=== PATIENT | male | born 1955 | race Caucasian/White ===

== ENCOUNTER 2019-01-21 00:51 | Outpatient (CLI) | payer BC, SELFPAY ==
--- NOTE | 2019-01-21 08:15 | DI.NM_ITS ---
SEE RESULTS ON DAY 2 OF THE STUDY.
== END 2019-01-21 01:11 ==
PROVIDERS: PCP Emergency Medicine; Visit Provider Internal Medicine Interventional Cardiology
DX: I42.9 Cardiomyopathy, unspecified (principal); I25.2 Old myocardial infarction; R94.30 Abnormal result of cardiovascular function study, unspecified; R06.02 Shortness of breath; E11.9 Type 2 diabetes mellitus without complications; I10 Essential (primary) hypertension; E78.5 Hyperlipidemia, unspecified; I48.91 Unspecified atrial fibrillation; Z82.49 Family history of ischemic heart disease and other diseases of the circulatory system

== ENCOUNTER 2019-01-22 00:15 | Outpatient (CLI) | payer BC, SELFPAY ==
--- NOTE | 2019-01-22 06:45 | MERGEMPI_ITS ---
*[facility]* *[facility]* [address] [place] [address] Myocardial Perfusion Imaging - SPECT Reyes protocol Date of study: 01/22/2019 *PATIENT PRESENTATION* Height: 172.7cm (68in) Blood Pressure: Weight: 163.6kg (360lb) BSA: 2.9m^2 Referring physician: Ed Rowe Ordering physician: Bill Gurrola MD Impressions: - Abnormal contraction consistent with cardiomyopathy. - Study suggests small myocardial infarction in the territory of the left anterior descending coronary artery. Summary: 1. Myocardial perfusion imaging: There is a small sized, severely intense, fixed defect involving the apical anterior and apical wall(s). This suggests small myocardial infarction in the distribution of the left anterior descending coronary artery. 2. The left ventricular end-systolic volume is 102ml. The calculated left ventricular ejection fraction after stress: 34%. LV global systolic function is severely reduced. Diffuse left ventricular regional motion abnormalities. 3. Stress ECG conclusions: The stress ECG is indeterminate due to baseline ST/T wave abnormality. 4. Stress: The target heart rate was achieved. The heart rate response to stress is exaggerated. There is resting hypertension with an appropriate response to stress. The patient experienced no chest pain during stress. Exercise capacity is markedly diminished for age. 5. Baseline ECG: Atrial fibrillation. Nonspecific ST changes. 6. Treadmill exercise testing was performed using the Reyes protocol. The patient exercised for 3 min, to protocol stage 1, to a maximal work rate of 4.6mets. Exercise was terminated due to achievement of target heart rate. Recommendations: 1. Transthoracic echocardiography should be performed in order to evaluate LV function. 2. Clinical correlation is recommended. Indication: R06.02, Appropriate Use Criteria: M (May be appropriate). History: REASON FOR VISIT: PREOP REQUIREMENT FOR BARIATRIC SURGERY. PAST MEDICAL HISTORY: DIABETES MELLITUS II, OBSTRUCTIVE SLEEP APNEA (WITH BIPAP USE), HYPERCHOLESTEROLEMIA, ESSENTIAL HTN, CARDIOMYOPATHY, ATRIAL FIBRILLATION, DEPRESSIVE DISORDER. FAMILY HISTORY: FATHER (HEART DISEASE, HTN). SISTER (HTN) SMOKING STATUS: QUIT 40 YEARS AGO. EXERCISE ROUTINE: NONE. Risk factors: Family history of coronary artery disease. Hypertension. Diabetes mellitus. Obesity. Dyslipidemia. Cholesterol: 126mg/dl. HDL: 37mg/dl. LDL: 69mg/dl. Triglycerides: 145mg/dl. ALLERGIES: NO KNOWN ALLERGIES. MEDICATIONS: SIMVASTATIN 40MG, DAILY. TERAZOSIN 1MG, HS. FUROSEMIDE 40MG, DAILY. LISINOPRIL 60MG, DAILY. SERTRALINE 100MG, DAILY. METOPROLOL SUCCINATE ER 100MG, DAILY. SILDENAFIL 100MG, PRN. GLIPIZIDE ER 10MG, DAILY. SPIRONOLACTONE 25MG, DAILY. METFORMIN 1,000MG, DAILY. Imaging Technique: Protocol: Reyes protocol. Acquisition: Gated SPECT; stress. The patient was imaged in the supine position. Attenuation correction used. Isotope administration: - Stress. Tc[99m]-sestamibi. Dose: 28mCi. Injection time: 08:30 AM. - Dose: 30.8mCi. Injection time: 10:00 AM. Baseline ECG: ATRIAL FIBRILLATION WITH VENTRICULAR ECTOPIC BEATS. HEART RATE 92 BPM. Atrial fibrillation. Nonspecific ST changes. Stress protocol: + +---+ + !Stage !HR !BP (mmHg) ! + +---+ + !Baseline supine !92 !150/52 (85) ! + +---+ + !Baseline standing !92 !140/60 (87) ! + +---+ + !Stage I; 1.7mph, 10degrees; 3 min!176!180/82 (115)! + +---+ + !Recovery; 1 min !114!190/76 (114)! + +---+ + !Recovery; 3 min !94 !146/72 (97) ! + +---+ + !Recovery; 6 min !93 !132/68 (89) ! + +---+ + * Stress results: Maximal heart rate during stress was 188bpm (122% of maximal predicted heart rate). The maximal predicted heart rate was 154bpm. The target heart rate was achieved. The heart rate response to stress is exaggerated. There is resting hypertension with an appropriate response to stress. The rate-pressure product for the peak heart rate and blood pressure was 44349aa Hg/min. The patient experienced no chest pain during stress. Exercise capacity is markedly diminished for age. Stress ECG: TREADMILL PORTION OF STRESS TEST ENDED IN 3MIN DUE TO PATIENT SUSTAINING HEART RATE GREATER THAN 100% OF TARGET. NORMAL BLOOD PRESSURE RESPONSE TO EXERCISE. EXAGGERATED HEART RATE RESPONSE TO EXERCISE. MAXIMAL HR ACHIEVED 188 BPM, 122% OF TARGET. APPROXIMATE METS ACHEIVED 4.64. NO ANGINA REPORTED. VENTRICULAR ECTOPIC BEATS PRESENT AT BASELINE, OCCASIONAL PAIR, DECREASING IN FREQUENCY DURING EXERCISE. NO SIGNIFICANT ST SEGMENT CHANGES NOTED. MARKEDLY DIMINISHED FUNCTIONAL CAPACITY. The stress ECG is indeterminate due to baseline ST/T wave abnormality. Myocardial perfusion: Imaging information: gated. Image quality reduced due to patient motion and image flickering consistent with an ECG gating problem. The left ventricle is moderately dilated. There is a small sized, severely intense, fixed defect involving the apical anterior and apical wall(s). This suggests small myocardial infarction in the distribution of the left anterior descending coronary artery. Ventricular Function (Wall Motion): The left ventricular end-systolic volume is 102ml. The calculated left ventricular ejection fraction after stress: 34%. LV global systolic function is severely reduced. Diffuse left ventricular regional motion abnormalities. Study data: Ed Rowe MD supervised and was readily available during the procedure. This study was interpreted by [facility]. Study status: Routine. Consent: The risks, benefits, and alternatives to the procedure were explained to the patient and informed consent was obtained. Procedure: Initial setup. A baseline ECG was recorded. Surface ECG leads and manual cuff blood pressure measurements were monitored. Heart sounds: Irregular. Lung sounds: Normal. Treadmill exercise testing was performed using the Reyes protocol. The patient exercised for 3 min, to protocol stage 1, to a maximal work rate of 4.6mets. Exercise was terminated due to achievement of target heart rate. Study completion: All catheters inserted during the procedure were removed. The patient tolerated the procedure well and was discharged from the lab. Discharge: The patient left the laboratory in stable condition. Birthdate: Patient birthdate: 1955. Sex: Gender: male. Study date: Study date: 01/22/2019. Study time: 00:01 AM. Signature Documentation: - The imaging portion of this study was interpreted by Nuclear Charge Entry Clerk Ed Rowe MD. - The imaging portion of this study was interpreted by Nuclear Radiologist Melquiades Sosa MD. - The Stress ECG portion of this study was interpreted by Ed Rowe MD. Electronically signed by Ed Rowe 01/22/2019 15:11
== END 2019-01-22 00:35 ==
PROVIDERS: PCP Emergency Medicine; Visit Provider Internal Medicine Interventional Cardiology
DX: I42.9 Cardiomyopathy, unspecified (principal); I25.2 Old myocardial infarction; R94.30 Abnormal result of cardiovascular function study, unspecified; R06.02 Shortness of breath; E11.9 Type 2 diabetes mellitus without complications; I10 Essential (primary) hypertension; E78.5 Hyperlipidemia, unspecified; I48.91 Unspecified atrial fibrillation; Z82.49 Family history of ischemic heart disease and other diseases of the circulatory system
CPT/HCPCS: 78452; 93017

== ENCOUNTER 2019-01-30 01:29 | Outpatient (CLI) | payer BC, SELFPAY ==
--- NOTE | 2019-01-30 14:00 | MERGE_ITS ---
*[facility]* *[facility]* [address] [place] [address] Date of study: 01/30/2019 Transthoracic Echocardiography M-mode, complete 2D, complete spectral Doppler, and color Doppler *STUDY CONCLUSIONS* Impressions: Moderate-severe cardiomyopathy. Summary: 1. Left ventricle: The cavity size was normal. Wall thickness was increased in a pattern of mild LVH. Systolic function was moderately reduced. The estimated ejection fraction was 35-40%. Severe hypokinesis of the anteroseptal, anterior, and apical myocardium. 2. Ventricular septum: Septal motion showed paradoxical motion. 3. Mitral valve: There was mild regurgitation. 4. Left atrium: The atrium was severely dilated. 5. Right ventricle: The cavity size was mildly dilated. Wall thickness was normal. Systolic function was mildly to moderately reduced. 6. Right atrium: The atrium was severely dilated. 7. Tricuspid valve: There was mild-moderate regurgitation. 8. Pulmonary arteries: Pulmonary systolic pressure was mildly increased. PA peak pressure: 41mm Hg (S). 9. Pericardium, extracardiac: A trivial pericardial effusion was identified posterior to the heart. *PATIENT PRESENTATION* Height: 172.7cm ((68in) ) S/D Pressure: 122 / 75 Weight: 163.3kg ((359.2lb) ) BSA: 2.9m^2 Test start time: 02:00 PM. Test stop time: 03:10 PM. 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 This study was interpreted by [facility]. Pertinent images and digital data are archived for permanent storage and are available for subsequent review. Study status: Routine. Transthoracic echocardiography. M-mode, complete 2D, complete spectral Doppler, and color Doppler. A Transthoracic Echocardiogram was performed. Scanning was performed from the parasternal, apical, subcostal, and suprasternal notch acoustic windows. Images were obtained using an [id number] cardiac ultrasound machine. Image quality was adequate. Study completion: The patient tolerated the procedure well. History: PMH: SOB R06.02. *CARDIAC ANATOMY* Left ventricle: The cavity size was normal. Wall thickness was increased in a pattern of mild LVH. Systolic function was moderately reduced. The estimated ejection fraction was 35-40%. Regional wall motion abnormalities: Severe hypokinesis of the anteroseptal, anterior, and apical myocardium. Diastolic parameters suggest increased LV filling pressures. Aortic valve: Trileaflet; normal thickness leaflets. Mobility was not restricted. Doppler: Transvalvular velocity was within the normal range. There was no stenosis. There was no significant regurgitation. VTI ratio of LVOT to aortic valve: 0.53. Valve area (VTI): 2cm^2. Indexed valve area (VTI): 0.7cm^2/m^2. Peak velocity ratio of LVOT to aortic valve: 0.52. Valve area (Vmax): 2cm^2. Indexed valve area (Vmax): 0.7cm^2/m^2. Mean velocity ratio of LVOT to aortic valve: 0.49. Valve area (Vmean): 1.9cm^2. Indexed valve area (Vmean): 0.7cm^2/m^2. Mean gradient (S): 4.8mm Hg. Peak gradient (S): 7.4mm Hg. Aorta: Aortic root: The aortic root was normal in size. Ascending aorta: The ascending aorta was normal in size. Mitral valve: Mildly thickened leaflets. Mobility was not restricted. Doppler: Transvalvular velocity was within the normal range. There was no evidence for stenosis. There was mild regurgitation. Valve area by pressure half-time: 4cm^2. Indexed valve area by pressure half-time: 1.4cm^2/m^2. Peak gradient (D): 4.7mm Hg. Left atrium: The atrium was severely dilated. Right ventricle: The cavity size was mildly dilated. Wall thickness was normal. Systolic function was mildly to moderately reduced. Ventricular septum: Septal motion showed paradoxical motion. Pulmonic valve: Doppler: Transvalvular velocity was within the normal range. There was no evidence for stenosis. There was mild regurgitation. Peak gradient (S): 4.4mm Hg. Tricuspid valve: Structurally normal valve. Doppler: Transvalvular velocity was within the normal range. There was no evidence for stenosis. There was mild-moderate regurgitation. Pulmonary artery: Pulmonary systolic pressure was mildly increased. Right atrium: The atrium was severely dilated. Pericardium: A trivial pericardial effusion was identified posterior to the heart. Systemic veins: Inferior vena cava: Well visualized. The vessel was patent and normal in size. The respirophasic diameter changes were in the normal range (greater than or equal to 50%), consistent with normal central venous pressure. Baseline ECG: Atrial fibrillation. Measurements Left ventricle Value Reference LV ID, ED, PLAX (H) 6.3 cm 3.5 - 6.0 LV ID, ES, PLAX (H) 5.0 cm 2.1 - 4.0 LV PW thickness, ED, PLAX 1.1 cm LV end-diastolic volume, 1-p A2C 153 ml LV ejection fraction, 1-p A2C 29 % LV end-diastolic volume, 1-p A4C 162 ml LV ejection fraction, 1-p A4C 35 % LV e', lateral 0.071 m/sec LV E/e', lateral 15 LV e', medial 0.073 m/sec LV E/e', medial 15 LV e', average 0.072 m/sec LV E/e', average 15 Ventricular septum Value Reference IVS thickness, ED, PLAX 1.2 cm LVOT Value Reference LVOT ID, A-P 2.2 cm LVOT area 3.9 cm^2 LVOT peak velocity, S 0.71 m/sec LVOT mean velocity, S 0.52 m/sec LVOT VTI, S 16.3 cm LVOT peak gradient, S 2 mm Hg LVOT mean gradient, S 1.2 mm Hg Stroke volume (SV), LVOT DP 64 ml Stroke index (SV/bsa), LVOT DP 22 ml/m^2 Aortic valve Value Reference Aortic valve peak velocity, S 1.4 m/sec Aortic valve mean velocity, S 1.05 m/sec Aortic valve VTI, S 31.0 cm Aortic mean gradient, S 4.8 mm Hg Aortic peak gradient, S 7.4 mm Hg VTI ratio, LVOT/AV 0.53 Aortic valve area, VTI 2 cm^2 Velocity ratio, peak, LVOT/AV 0.52 Aortic valve area, peak velocity 2 cm^2 Velocity ratio, mean, LVOT/AV 0.49 Aortic valve area, mean velocity 1.9 cm^2 Aortic valve area/bsa, mean velocity 0.7 cm^2/m^2 Aorta Value Reference Aortic root ID, ED 3.3 cm Ascending aorta ID, A-P, S 3.1 cm RVOT Value Reference RVOT VTI, S 13.3 cm Left atrium Value Reference LA area, ES, A4C (H) 35.5 cm^2 8.8 - 23.4 LA area, ES, A2C 29 cm^2 LA volume, ES, 1-p A2C 62 ml LA volume/bsa, ES, 1-p A2C 21 ml/m^2 LA volume, ES, 2-p 126 ml LA volume/bsa, ES, 2-p 43 ml/m^2 Mitral valve Value Reference Mitral E-wave peak velocity 1.08 m/sec Mitral deceleration time 192 ms 150 - 230 Mitral pressure half-time 56 ms Mitral peak gradient, D 4.7 mm Hg Mitral valve area, PHT, DP 4 cm^2 Pulmonary veins Value Reference Pulmonary vein peak velocity, S 0.55 m/sec Pulmonary vein peak velocity, D 0.8 m/sec Pulmonary vein velocity ratio, peak, 0.69 S/D Pulmonary arteries Value Reference PA pressure, S, DP (H) 41 mm Hg <=30 Tricuspid valve Value Reference Tricuspid regurg peak velocity 3 m/sec Tricuspid peak RV-RA gradient 35.2 mm Hg Right atrium Value Reference RA area, ES, A4C (H) 32 cm^2 8.3 - 19.5 Systemic veins Value Reference Estimated CVP 10 mm Hg Right ventricle Value Reference RV pressure, S, DP (H) 45 mm Hg <=30 Pulmonic valve Value Reference Pulmonic peak gradient, S 4.4 mm Hg Legend: (L) and (H) nasim values outside specified reference range. I have personally reviewed the images and have reviewed and edited the reported findings. Electronically signed by Herminia Larsen 01/30/2019 17:46
== END 2019-01-30 01:49 ==
PROVIDERS: PCP Emergency Medicine; Visit Provider Internal Medicine Interventional Cardiology
DX: R06.02 Shortness of breath (principal); I42.9 Cardiomyopathy, unspecified; I51.7 Cardiomegaly; I36.1 Nonrheumatic tricuspid (valve) insufficiency; I31.3 Pericardial effusion (noninflammatory)
CPT/HCPCS: 93306

== ENCOUNTER 2019-02-03 08:42 | Outpatient (CLI) | payer BC, SELFPAY | END 2019-02-03 09:02 | PROVIDERS: PCP Emergency Medicine; Visit Provider Internal Medicine Interventional Cardiology | DX: I48.91 Unspecified atrial fibrillation (principal) | CPT/HCPCS: 93005; 93010 ==

== ENCOUNTER 2019-11-19 09:30 | Outpatient (CLI) | payer BC, SELFPAY | END 2019-11-19 09:50 | PROVIDERS: PCP Emergency Medicine; Visit Provider Internal Medicine Cardiovascular Disease | DX: I48.91 Unspecified atrial fibrillation (principal); I42.9 Cardiomyopathy, unspecified | CPT/HCPCS: 93005; 93010 ==

== ENCOUNTER 2020-01-19 00:57 | Outpatient (CLI) | payer BC, SELFPAY ==
[2020-01-19 07:47] LABS: Abs Immature Grans 0.01 k/cumm (0.0-0.09); Absolute Basophil Count 0.01 k/cumm (0.0-0.2); Absolute Lymphocyte Count 2.19 k/cumm (1.2-3.4); Absolute Monocyte Count 0.39 k/cumm (0.11-0.7); Absolute Neutrophil Count 3.74 k/cumm (1.2-6.7); Basophils % 0.2; Eosinophils % 1.6; HCT 40.7 % (40.0-50.0); HGB 13.4 g/dL (13.5-17.5); Immature Grans % 0.2 %; Mean Corp. HGB Concentration 32.9 g/dL (32.0-36.0); Mean Platelet Volume 11.3 fL (8.0-11.0); Monocytes % 6.1; Neutrophils % 57.9; Platelet Count 204 x1000/uL (130-400); RBC 4.79 m/cumm (4.50-6.00); RBC Distribution Width 15.6 % (11.8-14.1); White Blood Cell Count 6.44 k/cumm (4.4-10.8)
[2020-01-19 08:01] LABS: Hemoglobin A1C 6.7 % (3.8-5.6)
[2020-01-19 08:31] LABS: Iron 87 ug/dL (65-175)
[2020-01-19 08:54] LABS: Vitamin D 25 Total 41.1 ng/ml (30-100)
[2020-01-19 09:01] LABS: ALT 27 U/L (16-63); AST 14 U/L (15-37); Albumin 3.9 g/dL (3.4-5.0); Alkaline Phosphatase 84 U/L (46-116); Anion Gap 9.9 mmol/L (3-11); Bilirubin, Total 0.6 mg/dL (0.2-1.0); CO2 24.1 mmol/L (21.0-32.0); CREATININE 1.22 mg/dL (0.70-1.30); Calcium 8.7 mg/dL (8.5-10.1); Calculated LDL 71 mg/dL (<100); Chloride 105 mmol/L (98-107); Cholesterol 134 mg/dL (<200); Estimated GFR 59.25 (mL/min/1.73m2); Ferritin 133 ng/mL (26-388); Folate 10.2 ng/mL (8.6-20.0); Glucose 146 mg/dL (74-106); HDL Cholesterol 41 mg/dL (40-60); Potassium 4.4 mmol/L (3.5-5.1); Sodium 139 mmol/L (136-145); Total Protein 7.1 g/dL (6.4-8.2); Triglyceride 112 mg/dL (<150); Vitamin B12 486 pg/mL (193-986)
[2020-01-19 09:20] LABS: BUN 23 mg/dL (7-18)
[2020-01-21 08:30] LABS: Thiamine (Vitamin B1), WB 176 nmol/L (70-180)
[2020-01-22 10:31] LABS: Prealbumin 25 mg/dL (20-40)
== END 2020-01-19 01:17 ==
PROVIDERS: PCP Emergency Medicine; Visit Provider Nurse Practitioner Family
DX: I10 Essential (primary) hypertension (principal); G47.33 Obstructive sleep apnea (adult) (pediatric); E11.9 Type 2 diabetes mellitus without complications; E78.5 Hyperlipidemia, unspecified; K91.2 Postsurgical malabsorption, not elsewhere classified; E83.10 Disorder of iron metabolism, unspecified; Z98.84 Bariatric surgery status
CPT/HCPCS: 36415; 80053; 80061; 82306; 82607; 82728; 82746; 83036; 83540; 84134; 84425; 85025

== ENCOUNTER 2020-06-29 07:35 | Outpatient (CLI) | payer BC, SELFPAY ==
[2020-07-01 13:53] LABS: Patient Race White; SARS-CoV-2 RNA Undetected (Undetected); SARS-CoV-2 Specimen Source Nasal
== END 2020-06-29 07:55 ==
PROVIDERS: PCP Emergency Medicine; Visit Provider Nurse Practitioner Family
DX: R50.9 Fever, unspecified (principal); R53.83 Other fatigue; R19.7 Diarrhea, unspecified
CPT/HCPCS: U0003

== ENCOUNTER 2020-09-15 02:41 | Outpatient (CLI) | payer BC, SELFPAY ==
[2020-09-15 10:56] LABS: Hemoglobin A1C 5.6 % (<5.7)
== END 2020-09-15 03:01 ==
PROVIDERS: PCP Emergency Medicine; Visit Provider Emergency Medicine
DX: E11.9 Type 2 diabetes mellitus without complications (principal)
CPT/HCPCS: 36415; 83036

== ENCOUNTER 2020-09-15 02:55 | Outpatient (CLI) | payer BC, SELFPAY ==
[2020-09-16 18:46] LABS: COVID-19 RT-PCR UVMMC Result Negative (Negative)
== END 2020-09-15 03:15 ==
PROVIDERS: PCP Emergency Medicine; Visit Provider Emergency Medicine
DX: Z20.828 Contact with and (suspected) exposure to other viral communicable diseases (principal)
CPT/HCPCS: U0003

== ENCOUNTER 2020-09-21 01:45 | Outpatient (CLI) | payer BC, SELFPAY ==
--- NOTE | 2020-09-21 07:24 | DI.US_ITS ---
APPROVED REPORT EXAM: Comprehensive 2D, Doppler, and color-flow Echocardiogram Patient Location: Out-Patient Cost Controller: Jayashree Henriquez RDCS (AE) Indications: cardiomyopathy Other Information Study Quality: Adequate Conclusion Ventricular chamber size and wall thickness. Estimated ejection fraction is 45 to 50% with mild glob al hypokinesis The right ventricle is normal in size and systolic function Left atrium is mildly dilated. The right atrium is normal in size Structurally normal trileaflet aortic valve without regurgitation or stenosis Structurally normal mitral valve with moderate regurgitation Structurally normal tricuspid valve, trace regurgitation, normal estimated right ventricular systolic pressure Structurally normal pulmonic valve Wall motion Left Ventricle The left ventricle is normal size. Left ventricular systolic function is mildly decreased. There is n ormal left ventricular wall thickness. There is mild global hypokinesis of the left ventricle. There is no ventricular septal defect visualized. LVEF is 45-50%. Right Ventricle The right ventricle is normal size. The right ventricular systolic function is normal. The RVSP is 28 .1mmHg. Atria Left atrium is mildly dilated. Left atrium is moderately dilated. Left atrium is severely dilated. No thrombus is visualized in the left atrium or appendage. Thrombus is present in the left atrium. Thro mbus is present in the left atrial appendage. 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 The right atrium size is normal. The interatrial septum is intact with no evidence for an atrial sep garcia defect. Aortic Valve The aortic valve is normal in structure. Aortic valve is trileaflet. There is no aortic valvular sten osis. No aortic regurgitation is present. Mitral Valve The mitral valve is normal in structure. No evidence of mitral valve stenosis. moderate mitral regurg itation. Tricuspid Valve The tricuspid valve is normal in structure. There is no tricuspid valve stenosis. Trace tricuspid reg urgitation. Pulmonic Valve The pulmonary valve is normal in structure. There is no pulmonic valvular stenosis. There is no pulmo inez valvular regurgitation. Great Vessels The aortic root is normal in size. The ascending aorta is normal in size. Aortic arch is not well vis ualized. IVC is normal in size and collapses >50% with inspiration. Pericardium Trivial pericardial effusion. 2D Dimensions IVSD d PLAX 1.15 cm M: 0.6-1.2 LV Vol A2C d MOD 201.6 mL LVPW d PLAX 1.12 cm M: 0.6 - 1.2 LV Vol A4C d MOD 158.5 mL LVID d PLAX 5.88 cm M: 4.2 - 5.8 LA vol/ BSA A2C s A-L 43.4 mL/m2 LVDs 4.45 cm M: 2.5 - 4.0 LA vol/ BSA A4C s A-L 38.5 mL/m2 Ao Root d 2.94 cm M: 3.1 - 3.7 LA Vol/ BSA Biplane s A-L 41.8 mL/m2 RA Area A4C 27.60 cm2 LA Area A4C s MOD 25.64 cm2 RA Vol/ BSA A4C s A-L 41.6 mL/m2 LA Area A2C s MOD 27.81 cm2 Ao Asc Diam d 3.28 cm M: 2.6 - 3.4 LV EF A4C MOD 45.2 % LV EF Teichholz 47.5 % LV EF A2C MOD 44.2 % LVEF (Cardenas's) 45.54 % M: 52 - 72 LV EF Biplane MOD 45.5 % LV Volume 132.33 mL M: 62 - 150 SV 83.41 mL LV Volume Index 59.07 mL/m2 M: 34 - 74 SV Index 37.12 mL/m2 LV Vol Biplane MOD 183.2 mL FS 24.25 % M-Mode TAPSE 1.89 cm (M/F) >1.7 LV Diastology MV E' medial 0.083 (>0.07 m/s) MV E Vmax 1.17 (0.4-1.3 m/s) LV E/e MED 14.00 (<14) MV E' lateral 0.115 (>0.1 m/s) LV E/e LAT 10.15 (<14) MV E/E' medial 14.04 MV E/E' lateral 10.16 Aortic Valve LVOT Area 4.03 cm2 AoV Area Vmax 2.57 cm2 LVOT Vmax 0.87 m/s AoV Area/ BSA (Vmax) 1.14 cm2/m2 LVOT Mean Venu. 0.60 m/s CHU Mean Venu. 2.34 cm2 LVOT Peak Grad 3.1 mmHg CHU Mean Venu. Index 1.04 cm2/m2 LVOT Mean Grad 1.7 mmHg LVOT VTI 0.194 m LVOT Diam s 2.25 cm AoV Vmax 1.37 m/s Velocity Ratio 0.63 AoV Mean Venu. 1.04 m/s AoV Peak Grad 7.5 mmHg LVOT SV 78.19 mL AoV Mean Grad 4.5 mmHg AoV VTI 0.309 m AoV Area VTI 2.53 cm2 AoV Area/ BSA (VTI) 1.12 cm/m2 Mitral Valve MV DT 242 (160-240 msec) MR Vmax 4.41 m/s MV PHT 70 msec MR VTI 1.679 m MV Area PHT 3.14 cm2 MR Peak Grad 77.7 mmHg MV VTI 0.361 m MR Mean Grad 52.7 mmHg MV VTI Annulus 0.366 m MR PISA Radius 0.53 cm MV Area VTI 2.20 (4.0-6.0 cm2) MR EROA 0.14 cm2 MR Aliasing Velocity 0.35 m/s MR PISA 1.76 cm2 Pulmonary Valve PV Vmax 0.95 (0.5-1.5 m/s) RVOT Peak Gr. 1.38 mmHg PV Peak Grad 3.6 mmHg RVOT Mean Gr. 0.75 mmHg PV Mean Grad 2.0 mmHg RVOT VTI 0.146 m PV VTI 0.212 m RVOT Vmax 0.59 m/s Tricuspid Valve TR Peak Grad 25.1 mmHg TR Vmax 2.51 m/s RA Pressure 3.00 mmHg RVSP (TR) 28.1 mmHg
== END 2020-09-21 02:05 ==
PROVIDERS: PCP Emergency Medicine; Visit Provider Internal Medicine Cardiovascular Disease
DX: I42.9 Cardiomyopathy, unspecified (principal); I34.0 Nonrheumatic mitral (valve) insufficiency
CPT/HCPCS: 93306

== ENCOUNTER 2021-02-05 12:26 | Emergency (ER) | payer BC, SELFPAY ==
--- NOTE | 2021-02-05 12:30 | DI.RAD_ITS ---
Exam(s) XR HAND RT COMPLETE EXAM: XR HAND RT COMPLETE CLINICAL HISTORY: crush injury. TECHNIQUE: 2D digital imaging was performed. COMPARISON: No exams were available for comparison FINDINGS: There is comminuted but nondisplaced fracture of the base the proximal phalanx of the 5th finger. Ad jacent 5th metacarpal head appears intact. No radiopaque foreign body. No other fractures identifie d. Benign-appearing cysts exostoses is seen off the volar medial aspect of the middle phalanx of the adjacent 4th-ring finger. Also a 1 millimeter calcific density seen off of the medial aspect of the head of the middle phalanx of the 4th-ring finger. IMPRESSION: Comminuted but nondisplaced fracture of the base of the proximal phalanx of the 5th finger. Fracture line is noted to violate the metacarpophalangeal joint surface. No radiopaque foreign body. No oth er fractures identified. Other findings as above. DATA REPOSITORY: RADIATION DOSE DELIVERED:
[2021-02-05 12:33] VITALS: BP 126/51; PULSE 81; RESP 16; TEMP 36.2; O2SAT 97
--- NOTE | 2021-02-05 13:32 | DI.VRAD_ITS ---
PROCEDURE INFORMATION: Exam: XR Right Hand Exam date and time: 02/05/2021 12:40 PM Age: 66 years old Clinical indication: Pain; Other: Crush injury TECHNIQUE: Imaging protocol: XR Right hand. Views: 3 or more views. COMPARISON: No relevant prior studies available. FINDINGS: Bones/joints: Comminuted nondisplaced fracture of the base and proximal shaft of the right proximal phalanx. 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 Soft tissues: Soft tissue swelling about right 5th finger. IMPRESSION: Comminuted nondisplaced fracture of the base and proximal shaft of the right proximal phalanx. Dictated and Authenticated by: Tracy Zamora MD. Ordering:CATALINA Wilkerson MD
--- NOTE | 2021-02-05 13:36 | W.ED.GENAD ---
Discharge Plan Disposition Patient Disposition: HOME Condition: Stable Discharge Details Clinical Impression: Finger fracture, right Primary Care Provider: Denis Olivier ED Provider: Rock Fitch Home Meds and New Rx's Prescriptions: Continued furosemide 40 mg tablet 20 mg PO DAILY Qty: 90 RF: 4 metformin 1,000 mg tablet 500 mg PO DAILY Qty: 180 RF: 3 simvastatin 40 mg tablet 40 mg PO DAILY Qty: 90 RF: 6 terazosin 1 mg capsule 1 mg PO HS Qty: 90 RF: 4 sertraline 100 mg tablet 100 mg PO DAILY Qty: 90 RF: 3 Eliquis 5 mg tablet 5 mg PO BID Qty: 180 RF: 3 metoprolol succinate 50 mg tablet extended release 24 hr 100 mg PO DAILY Qty: 180 RF: 3 lisinopril 30 mg tablet 60 mg PO DAILY Qty: 180 RF: 4 sildenafil [Viagra] 100 mg tablet 50 - 100 mg PO ONCE PRN (Reason: sexual activity) Qty: 10 RF: 4 Discharge Instructions Instructions: Finger Fracture (ED) Additional Instructions: Rest, elevate, cool compresses every 2 hours for 20 minutes. Wear olinda taping and finger splint until reevaluation with orthopedics. Xxji-nyw-dvahajq medications such as Tylenol as directed for discomfort. I have placed you on the orthopedic list, please contact their office on Sunday to set up prompt outpatient reevaluation. Please watch for new or worsening symptoms and return to the ER for any concerns Referrals: Angel Dubois MD [ [facility] STAFF PHYSICIAN] - Discharge Data Discharge Date/Time-TO BE ENTERED AT DEPARTURE: 02/05/21 14:11 Medical Decision Making 66-year-old gentleman, [id number], presents for right hand injury after a laura slipped and his hand was pinched between a can and a block of wood. No other distracting injuries. No laceration for repair. Skin is intact. Neuro, vascular, tendon intact. Will obtain x-ray. X-ray reviewed by me and confirmed by radiology as a fracture of the proximal fifth digit. Discussed x-ray findings with patient and family. Fourth and fifth fingers were olinda taped, a volar AlumaFoam splint applied. Patient placed on the orthopedic list and he will contact the orthopedic team on Sunday. He was given standard discharge and return precautions. Patient declines anything for analgesia, he will take [id number] medications. Medical Records Medical records reviewed: Yes I reviewed the patient's medical records. HPI General Mode of arrival: ambulatory. Date/Time Provider Initiated Documentation: 02/05/21 12:39. Limitations to Documentation: no limitations. Information obtained by: patient and family. HPI Narrative: This is a 66-year-old gentleman, [id number], past medical history that includes cardiomyopathy, depression, hypertension, gastric bypass, takes apixaban daily, presents for evaluation of right hand injury. He states that just prior to arrival he was jacking up his camper, when the laura slipped pinching his hand between the can and a block of wood. He denies breaking the skin. He reports that the pinning occurred primarily across the knuckles of the fifth, fourth, third, second digits. In the process he was trying to jerk his arm out and now his shoulder and elbow are little sore. He has not taken any medication for his symptoms. He denies any other injury, numbness, tingling, weakness. Patient states that his pain is moderate, slightly worse with movement. Patient has no additional questions or concerns at this time. Related Data Home Medications Medication Instructions Recorded Confirmed simvastatin 40 mg tablet 40 mg PO DAILY #90 tab-cap 07/15/19 02/05/21 terazosin 1 mg capsule 1 mg PO HS #90 tab-cap 03/23/20 02/05/21 sertraline 100 mg tablet 100 mg PO DAILY #90 tab-cap 06/25/20 02/05/21 apixaban 5 mg tablet 5 mg PO BID #180 tab 08/26/20 02/05/21 metoprolol succinate 50 mg 100 mg PO DAILY #180 tab 08/27/20 02/05/21 tablet,extended release 24 hr furosemide 40 mg tablet 20 mg PO DAILY #90 tab-cap 10/06/20 02/05/21 metformin 1,000 mg tablet 500 mg PO DAILY #180 tab-cap 10/06/20 02/05/21 lisinopril 30 mg tablet 60 mg PO DAILY #180 tab-cap 12/21/20 02/05/21 sildenafil 100 mg tablet 50 - 100 mg PO ONCE PRN #10 tab-cap 01/20/21 02/05/21 Previous Rx's Medication Instructions Recorded simvastatin 40 mg tablet 40 mg PO DAILY #90 tab-cap 07/15/19 terazosin 1 mg capsule 1 mg PO HS #90 tab-cap 03/23/20 sertraline 100 mg tablet 100 mg PO DAILY #90 tab-cap 06/25/20 apixaban 5 mg tablet 5 mg PO BID #180 tab 08/26/20 metoprolol succinate 50 mg 100 mg PO DAILY #180 tab 08/27/20 tablet,extended release 24 hr furosemide 40 mg tablet 20 mg PO DAILY #90 tab-cap 10/06/20 metformin 1,000 mg tablet 500 mg PO DAILY #180 tab-cap 10/06/20 lisinopril 30 mg tablet 60 mg PO DAILY #180 tab-cap 12/21/20 sildenafil 100 mg tablet 50 - 100 mg PO ONCE PRN #10 tab-cap 01/20/21 Allergies Allergy/AdvReac Type Severity Reaction Status Date / Time No Known Allergies Allergy Verified 09/22/20 11:29 General Stated Complaint: Orthopedic CHIDI: 2 Review of Systems Constitutional Constitutional: Denies fever(s) and Denies weakness Musculoskeletal Musculoskeletal: Denies deformity, Reports arthralgias, Denies numbness, Reports stiffness and Denies tingling Integumentary/Breasts Skin/Breast: Denies rash Neurologic Neurologic: Denies numbness, Denies tingling and Denies weakness [facility] Medical History Cardiomyopathy Depression Essential hypertension Hypercholesteremia KELLY (obstructive sleep apnea) Skin lesions Stasis dermatitis Surgical History Arthroplasty of knee X 2 Colonoscopy - MAC (05/12/15) Dr. Jose Guadalupe Casillas History of Nisa-en-Y gastric bypass Total replacement of hip RIGHT Family History Mother Personal history of malignant neoplasm BONE Father Essential hypertension Personal history of malignant neoplasm PROSTATE Heart disease Sister Essential hypertension Social History Smoking/Tobacco Use Status: Former Tobacco Use Smoking risk assessment performed?: Yes Drug use: Never What type of physical activity do you participate in: walking Duration: 15-30 minutes/day Frequency: 3-4 times per week Do you feel safe at home: Yes Do you feel safe in your relationship?: Yes Exam Const General: cooperative, healthy appearing, comfortable and no acute distress Orientation: alert and awake [facility] Head: normal to inspection, normocephalic and atraumatic Eyes General: appearance normal, both eyes and all related structures Conjunctivae: conjunctivae normal Neck Neck: normal visual inspection, trachea midline and supple Resp Effort & Inspection: normal respiratory effort and able to speak in complete sentences Cardio Rate: regular rate Rhythm: regular rhythm Skin General skin exam: no rashes or lesions noted Neuro General: patient alert, patient awake, moves all extremities and no focal motor deficits Cognition: normal cognition Speech: speech normal Gait: normal gait Motor: muscle tone normal throughout Sensory Exam: no sensory deficits noted Extrem General: capillary refill normal Right upper extremity: normal capillary refill, shoulder/upper arm Details: normal to inspection and axillary nerve sensory function normal; no tenderness and no swelling, elbow/forearm Details: normal to inspection and normal ROM; no tenderness and no swelling, wrist Details: normal to inspection and normal vascular exam; no tenderness and no swelling and hand Details: abnormal to inspection, normal capillary refill, neuromotor exam normal, neurosensory exam normal, tendon exam normal, tenderness, swelling and ecchymosis; no lacerations Hand/finger images: 1. Diffuse mild discomfort to palpation, swelling, ecchymosis. Neuro, vascular, tendon intact. Skin intact. Worst discomfort seems to be in the fifth digit. Patient is able to wiggle all digits. Limited range of motion of the fifth finger at the MCP and PIP joint secondary to discomfort. Psych Appearance: grossly normal Mental Status: mental status grossly normal Course Vital Signs Vital signs: Vital Signs Temperature 36.2 C L 02/05/21 12:33 Pulse 81 02/05/21 12:33 Respiratory Rate 16 02/05/21 12:33 Blood Pressure 126/51 L 02/05/21 12:33 Pulse Oximetry 97 02/05/21 12:33 Temperature 36.2 C L 02/05/21 12:33 Temperature Source Temporal Artery Scan 02/05/21 12:33 Pulse 81 02/05/21 12:33 Respiratory Rate 16 02/05/21 12:33 Respiratory Effort 02/05/21 12:39 Blood Pressure 126/51 L 02/05/21 12:33 Blood Pressure Position Supine 02/05/21 12:33 Pulse Oximetry 97 02/05/21 12:33 Oxygen Delivery Method Room Air 02/05/21 12:33 Oxygen Flow Rate 0 02/05/21 12:33 Pain Level 8 02/05/21 12:33
== END 2021-02-05 14:11 | disposition home or self-care (01) ==
PROVIDERS: Emergency Provider Physician Assistant; PCP Emergency Medicine
DX: S67.21XA Crushing injury of right hand, initial encounter (principal); S62.646A Nondisplaced fracture of proximal phalanx of right little finger, initial encounter for closed fracture; W23.1XXA Caught, crushed, jammed, or pinched between stationary objects, initial encounter
CPT/HCPCS: 26720; 73130

== ENCOUNTER 2021-02-25 10:56 | Outpatient (CLI) | payer BC, SELFPAY ==
--- NOTE | 2021-02-25 09:15 | DI.RAD_ITS ---
Exam(s) XR HAND RT COMPLETE EXAM: XR HAND RT COMPLETE CLINICAL HISTORY: F/U FRACTURE. TECHNIQUE: 2D digital imaging was performed. COMPARISON: CR,XR XR HAND RT COMPLETE from 02/05/2021 FINDINGS: BONES: There has been no change in the comminuted, nondisplaced and intra-articular fracture involvin g the proximal phalanx of the little finger. No bony destructive lesion is seen. JOINTS: No dislocation present. SOFT TISSUE: Mild soft tissue swelling of the little finger. IMPRESSION: Stable fracture of the proximal phalanx of the right 5th finger. DATA REPOSITORY: RADIATION DOSE DELIVERED:
== END 2021-02-25 10:57 | disposition home or self-care (01) ==
LOC: DIORS 03-02 10:59
PROVIDERS: PCP Emergency Medicine; Visit Provider Physician Assistant
DX: S62.646D Nondisplaced fracture of proximal phalanx of right little finger, subsequent encounter for fracture with routine healing (principal)
CPT/HCPCS: 73130

== ENCOUNTER 2021-08-26 19:16 | Outpatient (REF) | payer BC, SELFPAY | END 2021-08-26 19:17 | disposition home or self-care (01) | LOC: LBN 19:16 | PROVIDERS: PCP Emergency Medicine; Visit Provider Nurse Practitioner Family | DX: N50.812 Left testicular pain (principal) | CPT/HCPCS: 87077; 87086; 87186 ==

== ENCOUNTER 2022-03-02 02:14 | Outpatient (CLI) | payer BC, SELFPAY ==
[2022-03-02 11:06] LABS: ALT 40 U/L (16-63); AST 19 U/L (15-37); Albumin 4.2 g/dL (3.4-5.0); Alkaline Phosphatase 66 U/L (46-116); BUN 26 mg/dL (7-18); Bilirubin, Total 0.9 mg/dL (0.2-1.0); Calcium 9.1 mg/dL (8.5-10.1); Calculated LDL 61 mg/dL (<100); Chloride 104 mmol/L (98-107); Cholesterol 125 mg/dL (<200); Glucose 137 mg/dL (74-106); HDL Cholesterol 51 mg/dL (40-60); Hemoglobin A1C 6.1 % (<5.7); Potassium 4.3 mmol/L (3.5-5.1); Sodium 138 mmol/L (136-145); Total Protein 7.5 g/dL (6.4-8.2); Triglyceride 65 mg/dL (<150)
== END 2022-03-02 02:15 | disposition home or self-care (01) ==
LOC: LOS 02:14
PROVIDERS: PCP Nurse Practitioner Family; Visit Provider Family Medicine
DX: E11.9 Type 2 diabetes mellitus without complications (principal); I10 Essential (primary) hypertension; E78.00 Pure hypercholesterolemia, unspecified
CPT/HCPCS: 36415; 80053; 80061; 83036

== ENCOUNTER 2022-04-26 02:48 | Outpatient (CLI) | payer BC, SELFPAY ==
[2022-04-26 10:29] LABS: Source Nasal/Nares
[2022-04-26 14:07] LABS: COVID-19 PCR Negative (Negative)
== END 2022-04-26 02:49 | disposition home or self-care (01) ==
PROVIDERS: PCP Nurse Practitioner Family; Visit Provider Surgery
DX: Z20.822 Contact with and (suspected) exposure to COVID-19 (principal); Z01.818 Encounter for other preprocedural examination
CPT/HCPCS: 87635

== ENCOUNTER 2022-04-28 07:19 | Day surgery (SDC) | payer BC, SELFPAY ==
[2022-04-28 07:53] VITALS: BP 119/80; PULSE 73; RESP 16; TEMP 36.5; O2SAT 98
[2022-04-28] MEDS: Acetaminophen 500 MG TAB 1000 MG PO (08:02)
[2022-04-28] MEDS: Gabapentin 300 MG CAP 600 MG PO (08:03)
[2022-04-28] MEDS: Celecoxib 200 MG CAP PO (08:04)
[2022-04-28] MEDS: Lactated Ringers 1,000 ML 80 ML IV (08:25)
--- NOTE | 2022-04-28 09:16 | W.ANESPRE ---
General Info Date of Service Date Performed: 04/28/22 Height: 5 ft 8 in Weight: 124.9 kg Body Mass Index (BMI): 41.8 Surgical Procedure: Operation Date: 04/28/22 09:10 Proposed Procedure Side Surgeon p Excision Lipoma Arm Left Philipp Sosa MD Meds Allergies and Home Medications Allergies Allergy/AdvReac Type Severity Reaction Status Date / Time No Known Allergies Allergy Verified 04/28/22 07:45 Home Medication Medication Instructions Recorded terazosin 1 mg capsule 1 mg PO HS #90 tab-caps 04/25/21 simvastatin 40 mg tablet 40 mg PO DAILY #90 tab-caps 07/01/21 nystatin 100,000 unit/gram topical 1 applic topical TID #60 grams 08/26/21 powder apixaban 5 mg tablet (Eliquis) 5 mg PO BID anticoagulation #180 10/03/21 tabs lisinopril 30 mg tablet 60 mg PO DAILY #180 tab-caps 12/28/21 furosemide 40 mg tablet 40 mg PO DAILY #90 tab-caps 01/12/22 sildenafil 100 mg tablet (Viagra) 50 - 100 mg PO ONCE PRN sexual 03/07/22 activity #10 tab-caps metformin 500 mg tablet 500 mg PO DAILY #90 tabs 04/12/22 sertraline 100 mg tablet 100 mg PO DAILY #90 tab-caps 04/13/22 metoprolol succinate 50 mg 100 mg PO HS 04/27/22 tablet,extended release 24 hr oxycodone 5 mg tablet 5 mg PO Q8H PRN pain #5 tabs 04/28/22 Current Visit Medications: Current Medications Generic Name Dose Route Start Last Admin Trade Name Stanley PRN Reason Stop Dose Admin Acetaminophen 1,000 mg 04/28/22 06:00 04/28/22 08:02 Acetaminophen 500 Mg Tab PO 04/28/22 23:59 1,000 mg PREOP ROBSON Administration Celecoxib 200 mg 04/28/22 06:00 04/28/22 08:04 Celecoxib 200 Mg Cap PO 04/28/22 23:59 200 mg PREOP ROBSON Administration Gabapentin 600 mg 04/28/22 06:00 04/28/22 08:03 Gabapentin 300 Mg Cap PO 04/28/22 23:59 600 mg PREOP ROBSON Administration Ringer's Solution 1,000 mls @ 80 mls/hr 04/28/22 06:00 04/28/22 08:25 IV 05/27/22 23:59 80 mls/hr INFUSION ROBSON Administration Cefazolin Sodium/Dextrose 2 gm in 50 mls @ 100 mls/hr 04/28/22 06:00 Ancef Duplex IVPB 04/28/22 23:59 PREOP ROBSON IV Miscellaneous Supplies 1 each 04/28/22 06:00 Iv Access IV 05/27/22 23:59 DIRECTED ROBSON Sodium Chloride 0 ml 04/28/22 06:00 Normal Saline Flush 10 Ml Syr IV 05/27/22 23:59 PRN PRN Sodium Chloride 0 ml 04/28/22 06:00 Normal Saline 10 Ml Vial IJ 05/27/22 23:59 DIRECTED PRN Sterile Water 0 ml 04/28/22 06:00 Water,Injection,Sterile 10 Ml Vial IJ 05/27/22 23:59 DIRECTED PRN PFSH Active Problems Active Problems: Problem Status Onset Code Atrial fibrillation 03/29/16 I48.91 Cardiomyopathy 09/03/13 I42.9 Colon polyp 05/26/15 K63.5 Depressive disorder 09/03/13 F32.9 Essential hypertension I10 Hypercholesterolemia 03/09/08 E78.00 Male erectile disorder 09/03/13 N52.9 Morbid obesity due to excess calories 08/25/15 E66.01 Sleep apnea 09/03/13 G47.30 Stasis dermatitis 09/03/13 I87.2 Type 2 diabetes mellitus without complication 03/22/16 E11.9 Seizure disorder 09/03/13 G40.909 History of Nisa-en-Y gastric bypass Z98.84 Lipoma D17.9 Medical History Medical History (Updated 04/28/22 @ 07:51 by Noris Pemberton) Cardiomyopathy Depression Essential hypertension Hx of atrial fibrillation, no current medication pt. is currently on meds for this, see summary Hypercholesteremia KELLY (obstructive sleep apnea) Stasis dermatitis Surgical History Surgical History (Updated 04/28/22 @ 07:50 by Noris Pemberton) Arthroplasty of knee X 2, hpt. reports these were scopes Colonoscopy - MAC (05/12/15) Dr. Jose Guadalupe Casillas History of surgery on lower extremity R leg, tumor removal, pt. reports in 1970s Total replacement of hip RIGHT Tobacco Smoking/Tobacco Use Status: Former Tobacco Use Alcohol Alcohol Intake: current Alcohol intake frequency: a few times a week Alcohol type: wine Substance Use Substance use: Never Substance use type: does not use Details: alcohol: t-5. one glass Vital Signs and Lab Results Vital Signs Most Recent Vital Signs in EMR: Most Recent Vital Signs Temp Pulse Resp BP Pulse Ox 36.5 C 73 16 119/80 98 04/28/22 07:53 04/28/22 07:53 04/28/22 07:53 04/28/22 07:53 04/28/22 07:53 Lab Results Blood Type / Crossmatch: No Data to Display Complete Blood Count: No Data to Display Complete Metabolic Panel: No Data to Display Liver Function Panel: No Data to Display Coagulation Panel: No Data to Display Cardiac Panel: No Data to Display Arterial Blood Gas: No Data to Display Venous Blood Gas: No Data to Display Pancreas Panel: No Data to Display Thyroid Panel: No Data to Display Infectious Disease: Coronavirus (COVID-19)(PCR) Negative (Negative) 04/26/22 07:35 Coronavirus 2019 Source Nasal/Nares 04/26/22 07:35 Blood Cultures: No Data to Display Toxicology Panel: No Data to Display Imaging and Studies Imaging and Studies Study information below may be from another EMR and interpreted by another provider. Please see original notes in EMR for more complete details. Echocardiogram Summary: Conclusion Ventricular chamber size and wall thickness. Estimated ejection fraction is 45 to 50% with mild global hypokinesis The right ventricle is normal in size and systolic function Left atrium is mildly dilated. The right atrium is normal in size Structurally normal trileaflet aortic valve without regurgitation or stenosis Structurally normal mitral valve with moderate regurgitation Structurally normal tricuspid valve, trace regurgitation, normal estimated right ventricular systolic pressure Structurally normal pulmonic valve Anesthesia Assessment and Plan Anesthesia History Personal History: No History of Anesthesia Complications Family History: No Family History of Anesthesia Complications Exercise Tolerance Exercise Tolerance: Metabolic Equivalents>4 Cardiac & Pulmonary Exam Cardiac Exam: Normal S1/S2 Heart Sounds Pulmonary Exam: Clear Bilateral Breath Sounds Implantable Cardiac Device Does patient have a Pacemaker or an ICD?: No Airway Exam Known Difficult Airway: No Mallampati Class: 2 Mouth Opening: Normal (> 3cm) Thyromental Distance: Greater than 3 cm Facial Hair: Full Bartlett Neck Range of Motion: Full ROM Neck Circumference: Thick Teeth Condition: Normal Dentition Airway Comments: Wears CPAP nightly ASA Classification ASA Score: ASA 3 Emergency Case?: No NPO Status NPO Status: NPO Clears >2 hours, Solids >8 hours Anesthesia Plan Resuscitation Status: Full Code Anesthesia Technique: MAC Anesthesia Airway Planned: Natural Airway Monitors Used: Standard Monitors
[2022-04-28 09:18] VITALS: BMI 41.8
--- NOTE | 2022-04-28 09:18 | W.PM.DSUDISC ---
Discharge Plan Disposition Patient Disposition: HOME Condition: Good Discharge Details Reason For Visit: lipoma excision Attending Provider: Philipp Sosa Primary Care Provider: Hermelindo Brown Home Meds and New Rx's Prescriptions: New oxycodone 5 mg tablet 5 mg PO Q8H MDD do not exceed 3 doses PRN (Reason: pain) Qty: 5 0RF Rx Instructions: take one pill by mouth as needed for pain Continued nystatin 100,000 unit/gram powder 1 applic topical TID Qty: 60 3RF furosemide 40 mg tablet 40 mg PO DAILY Qty: 90 4RF Rx Instructions: T terazosin 1 mg capsule 1 mg PO HS Qty: 90 4RF simvastatin 40 mg tablet 40 mg PO DAILY Qty: 90 6RF lisinopril 30 mg tablet 60 mg PO DAILY Qty: 180 4RF Rx Instructions: 2 TABS DAILY sildenafil [Viagra] 100 mg tablet 50 - 100 mg PO ONCE PRN (Reason: sexual activity) Qty: 10 4RF Label Comments: pt. states not last night metformin 500 mg tablet 500 mg PO DAILY Qty: 90 3RF sertraline 100 mg tablet 100 mg PO DAILY Qty: 90 3RF metoprolol succinate 50 mg tablet extended release 24 hr 100 mg PO HS Held Eliquis 5 mg tablet 5 mg PO BID Qty: 180 3RF Hold Instructions: Resume on 04/29/22. Do not take until tomorrow Discharge Instructions Instructions: Soft Tissue Mass (ED) Additional Instructions: 1. Resume all of your medications. 2. Use oxycodone as needed for pain. 3. Okay to use tylenol and ibuprofen over the counter as needed. 4. Leave bandage in place for 24 hours, then remove. 5. Shower with warm soapy water. Pat dry. Use a bandaid if needed to protect your clothing. 6. No soaking or tub baths until I see you in the office. 7. No heavy lifting until I see you in the office. 8.Call the office (or go directly to the emergency room after hours) if you notice any of the following: Develop chills (warm to touch), or if you have a thermometer and your temperature is above 101 Difficulty breathing or difficultly swallowing Persistent vomiting Any bleeding ? exceeding one tablespoon 6. Call your physician if the site where your intravenous was started becomes red, swollen, painful, and warm to touch. Referrals: Philipp Sosa MD [ [facility] STAFF PHYSICIAN] - Activity:: Activity as Tolerated Remove Dressings/Wound Care:: 24 hours Shower/Bathe:: 24 hours Diet:: As Tolerated Discharge Orders Discharge Orders: Discharge Order (Routine); Ordered 04/28/22 Ordered By: Philipp Sosa Discharge Data Discharge Comment: Follow-up with me 7-10 days DS: Diagnosis Discharge Diagnosis (1) Lipoma: Status: Acute Asessment and Plan: operative excision
--- NOTE | 2022-04-28 09:22 | W.PM.OP ---
Date of service: 04/28/22 Time of Service: 10:53 Operative Note Operative Note DATE OF PROCEDURE: 04/28/22 PRE-OP DIAGNOSIS: left arm lipoma POST-OP DIAGNOSIS: other (Left arm soft tissue mass) PROCEDURE: exision of left arm mass SURGEON: Philipp Sosa ANESTHESIA TYPE: MAC Refer to Anesthesia Record PATHOLOGY: other (left arm mass, 1 suture deep, 2 proximal) COMPLICATIONS: None Patient was transported to: same day Patient's condition: stable Indications: Uri is a 67-year-old male who presents with a longstanding left upper extremity mass. It is rubbery and fairly mobile, and has clinical features consistent with a lipoma. Procedure Description: I started by confirming the correct operative side with Uri. Next, after establishing adequate anesthesia, I prepped and draped the left upper extremity. I anesthetized the field with local. Next, I made a longitudinal incision over the mass. I dissected down through the skin into the subcutaneous fat. Here encountered a large globular well-circumscribed portion of soft tissue that seems consistent with a lipoma. I began circumferential dissection of this. As I dissected laterally and distally along the arm, I encountered several serpiginous extensions of the mass into the surrounding normal soft tissue fat. This margin was far less well circumscribed. Therefore, I turned my attention back to the medial and proximal portions of the mass. Here, I was able to dissected down onto the deep fascia of the left upper extremity. The base of the mass seem to arise from the interfascial septum of the biceps and triceps muscles. This required some resection along the fascia adjacent to the brachialis muscle. Similarly, I was able to obtain continued the dissection proximally to the previously mentioned posterior border. Here, in order to excise the mass without compromising the adjacent skin and underlying soft tissue, I did divide some of the serpiginous portions of the adjacent fat. In light of the fact that the margins of the mass were slightly atypical for lymphoma, I did nasim the specimen 1 suture was used to nasim the deep border of the mass (adjacent to the brachialis fascia). Two sutures were used to nasim the proximal margin of the mass. Similarly, I used a large clip programming coordinator to nasim the margins of the resection bed. One clip was used to nasim the base of the surgical field. Two clips were used to nasmi the distal border, and 3 clips were used to nasim the medial aspect. Next, I irrigated the surgical field with sterile saline. I used the electrocautery to ensure hemostasis. I irrigated once again. Finally, I closed the deep layer of the fat with interrupted 2-0 Vicryl stitches. I closed the superficial layer using 3-0 Vicryl stitches, and I closed the skin with a running Maxon suture. I applied bandages prior to the patient waking up.
[2022-04-28] MEDS: ceFAZolin 2 GM/50 ML BAG IVPB (09:45)
--- NOTE | 2022-04-28 10:00 | SOFT_PTH ---
PATIENT: Uri Carver LOC: [facility] U#:[id number] AGE/SX: 67/M ROOM: RE04/28/[address]: Philipp Sosa MD : [id number] BED: DIS: 04/28/2022 SPEC #: [id number] RECD: 04/28/22 11:51 STATUS: ZARI REQ #: [id number] ANAT: 04/28/22 10:[address]: Philipp Sosa DEPT: Surgical Specimen RECD BY: Kaitlin Estrada ENTERED: 04/28/22 11:59 SP TYPE: SOFT OTHR DR: Hermelindo Brown, BERNARD Tissues: 1 - SOFT TISSUE MISC (INC. LIPOMA) Procedures: GROSS AND MICRO LEVEL 3 Comments: [id number]
[2022-04-28] MEDS: Bupivacaine 0.25% Pres-Free 30 ML VIAL (10:37)
[2022-04-28 11:04] VITALS: BP 112/70; PULSE 58; RESP 16; TEMP 36.4; O2SAT 96
--- NOTE | 2022-04-28 11:07 | W.ANESPOSTOP ---
Postoperative Evaluation Date, Time and Location Date Performed: 04/28/22 Time Performed: 11:07 Patient Location: Day Surgery Unit Vital Signs Most Recent Imported Vital Signs: Most Recent Vital Signs Temp Pulse Resp BP Pulse Ox 36.5 C 73 16 119/80 98 04/28/22 07:53 04/28/22 07:53 04/28/22 07:53 04/28/22 07:53 04/28/22 07:53 Pain Score Most Recent Pain Score: Most Recent Pain Score Pain Level 0 04/28/22 07:53 Assessment Mental Status: Awake (Alert & Oriented to Patient Baseline) Airway and Respiratory Function: Patent airway with normal (patient baseline) respiratory exam Cardiovascular Function: Hemodynamically Stable Hydration Status: Adequately Hydrated Nausea & Vomiting: No Nausea or Vomiting Pain: Pt. Denies Any Pain Peripheral Nerve Block: Patient did not receive a nerve block
[2022-04-28 11:22] VITALS: BP 133/67; PULSE 64; RESP 17; TEMP 36.3; O2SAT 98
== END 2022-04-28 11:50 | disposition home or self-care (01) ==
PROVIDERS: PCP Nurse Practitioner Family; Visit Provider Surgery
PROC: (CPT 24071; principal; 2022-04-28 09:00)
DX: D17.22 Benign lipomatous neoplasm of skin and subcutaneous tissue of left arm (principal); E11.9 Type 2 diabetes mellitus without complications; I48.91 Unspecified atrial fibrillation; I42.9 Cardiomyopathy, unspecified; I10 Essential (primary) hypertension
CPT/HCPCS: 24071; 88305; 88304; J0690; J1100; J2405; J3010

== ENCOUNTER 2024-03-02 12:07 | Emergency (ER) | payer BC, SELFPAY ==
[2024-03-02 12:10] VITALS: BP 151/86; PULSE 67; RESP 14; TEMP 36.6; O2SAT 95
--- NOTE | 2024-03-02 12:30 | DI.RAD_ITS ---
Exam(s) XR SHOULDER LT COMPLETE 2+V EXAM: XR SHOULDER LT COMPLETE 2+V CLINICAL HISTORY: left shoulder pain. TECHNIQUE: 2D digital imaging was performed. COMPARISON: No exams were available for comparison FINDINGS: Six views. There is no evidence of acute fracture or dislocation. No abnormal soft tissue calcifications in the subacromial space. No obvious degenerative changes in the glenohumeral joint. Mild degenerative changes are noted in the AC joint. Of the Grashey view there is a 1 cm osteophytic density just above the AC joint noted. Related to degenerative changes. This is above the AC joint proper and is not causing impingement in the subacromial space. IMPRESSION: No significant acute findings in the shoulder. DATA REPOSITORY: RADIATION DOSE DELIVERED:
--- NOTE | 2024-03-02 13:59 | DI.VRAD_ITS ---
PROCEDURE INFORMATION: Exam: XR Left Shoulder Exam date and time: 03/02/2024 1:02 PM Age: 69 years old Clinical indication: Injury or trauma; Fall; Sprain or strain; Shoulder; Left TECHNIQUE: Imaging protocol: Radiologic exam of the left shoulder. Views: 2 or more views. COMPARISON: No relevant prior studies available. FINDINGS: Bones/joints: No acute bony injury or malalignment in the left shoulder. Degenerative change. Soft tissues: Unremarkable soft tissues. IMPRESSION: No acute bony injury or malalignment in the left shoulder. Dictated and Authenticated by: Reyes Lee MD. Ordering:[facility] Bailey Johnson MD
--- NOTE | 2024-03-02 13:59 | ED.GENADUL_ITS ---
Discharge Plan Disposition Patient Disposition: Home Condition: Stable Discharge Details Clinical Impression: Acute pain of left shoulder Primary Care Provider: Hermelindo Brown ED Provider: Reny Avalos Home Meds and New Rx's Prescriptions: New methocarbamol 500 mg tablet 500 mg PO TID Qty: 30 0RF No Action nystatin 100,000 unit/gram powder 1 applic topical TID Qty: 60 3RF lisinopril 30 mg tablet 60 mg PO DAILY Qty: 180 4RF Rx Instructions: 2 TABS DAILY sildenafil [Viagra] 100 mg tablet 50 - 100 mg PO ONCE PRN (Reason: sexual activity) Qty: 30 4RF Patient Comments: pt. states not last night sertraline 100 mg tablet 100 mg PO DAILY Qty: 90 3RF terazosin 1 mg capsule 1 mg PO HS Qty: 90 4RF furosemide 40 mg tablet 40 mg PO DAILY Qty: 90 4RF Rx Instructions: T simvastatin 40 mg tablet 40 mg PO DAILY Qty: 90 6RF Eliquis 5 mg tablet 5 mg PO BID Qty: 180 3RF Hold Instructions: Resume on 04/29/22. Do not take until tomorrow metformin 500 mg tablet 500 mg PO DAILY Qty: 90 3RF metoprolol succinate 100 mg tablet extended release 24 hr 100 mg PO DAILY Qty: 90 3RF Discharge Instructions Instructions: Shoulder Pain (ED) Additional Instructions: take robaxin and tylenol as needed for pain wear sling for comfort, make sure to do range of motions every hour if symptoms are not improving you may need an MRI to further evaluate for injuries, this can be ordered through your PCP HPI General Date/Time Provider Initiated Documentation: 03/02/24 12:30 . Limitations to Documentation: no limitations . Information obtained by: patient . HPI Narrative: 69-year-old gentleman with past medical history of diabetes A-fib on Xarelto presents for evaluation of acute left shoulder pain. Just prior to arrival he was pulling a box when the rope he was using slipped and he fell onto his left shoulder. He did not hit his head or lose consciousness. He denies any head or neck pain. Localizes pain to the left shoulder. Pain is severe, constant, worse with any movement. He reports that he has had difficulty moving. He has not taken any medication prior to arrival. He denies any numbness or tingling. Related Data Home Medications Medication Instructions Recorded Confirmed nystatin 100,000 unit/gram topical 1 applic topical TID #60 grams 08/26/21 03/02/24 powder lisinopril 30 mg tablet 60 mg (2 x 30 mg) PO DAILY #180 03/26/23 03/02/24 tab-caps sildenafil 100 mg tablet (Viagra) 50 - 100 mg (0.5 - 1 x 100 mg) PO 03/26/23 03/02/24 ONCE PRN sexual activity #30 tab-caps sertraline 100 mg tablet 100 mg PO DAILY #90 tab-caps 04/25/23 03/02/24 terazosin 1 mg capsule 1 mg PO HS #90 tab-caps 08/03/23 03/02/24 furosemide 40 mg tablet 40 mg PO DAILY #90 tab-caps 11/02/23 03/02/24 simvastatin 40 mg tablet 40 mg PO DAILY #90 tab-caps 11/02/23 03/02/24 apixaban 5 mg tablet (Eliquis) 5 mg PO BID anticoagulation #180 01/07/24 03/02/24 tabs metformin 500 mg tablet 500 mg PO DAILY #90 tabs 01/31/24 03/02/24 metoprolol succinate 100 mg 100 mg PO DAILY #90 tabs 01/31/24 03/02/24 tablet,extended release 24 hr methocarbamol 500 mg tablet 500 mg PO TID #30 tabs 03/02/24 Previous Rx's Medication Instructions Recorded nystatin 100,000 unit/gram topical 1 applic topical TID #60 grams 08/26/21 powder lisinopril 30 mg tablet 60 mg (2 x 30 mg) PO DAILY #180 03/26/23 tab-caps sildenafil 100 mg tablet (Viagra) 50 - 100 mg (0.5 - 1 x 100 mg) PO 03/26/23 ONCE PRN sexual activity #30 tab-caps sertraline 100 mg tablet 100 mg PO DAILY #90 tab-caps 04/25/23 terazosin 1 mg capsule 1 mg PO HS #90 tab-caps 08/03/23 furosemide 40 mg tablet 40 mg PO DAILY #90 tab-caps 11/02/23 simvastatin 40 mg tablet 40 mg PO DAILY #90 tab-caps 11/02/23 apixaban 5 mg tablet (Eliquis) 5 mg PO BID anticoagulation #180 01/07/24 tabs metformin 500 mg tablet 500 mg PO DAILY #90 tabs 01/31/24 metoprolol succinate 100 mg 100 mg PO DAILY #90 tabs 01/31/24 tablet,extended release 24 hr methocarbamol 500 mg tablet 500 mg PO TID #30 tabs 03/02/24 Allergies Allergy/AdvReac Type Severity Reaction Status Date / Time No Known Allergies Allergy Verified 03/02/24 12:13 General Stated Complaint: Orthopedic CHIDI: 4 Exam Narrative Exam Narrative: Review of Systems: All systems reviewed & are unremarkable except as noted in HPI and below Well-developed, no acute distress NCAT PERRL, normal conjunctiva no c spine tenderness no murmur no chest wall tenderness clavicle non tender Unlabored respiratory effort Nondistended abdomen left shoulder tender, over head of humerus passive ROM intact, no dislocation, wrist and elbow normal small scratch to left lower leg No rashes or lesions. no focal neurologic deficits Appropriate mood and affect Course Vital Signs Vital signs: Vital Signs Temperature 36.6 C 03/02/24 12:10 Pulse 67 03/02/24 12:10 Respiratory Rate 14 03/02/24 12:10 Blood Pressure 151/86 H 03/02/24 12:10 Pulse Oximetry 95 03/02/24 12:10 Temperature 36.6 C 03/02/24 12:10 Temperature Source Temporal Artery Scan 03/02/24 12:10 Pulse 67 03/02/24 12:10 Respiratory Rate 14 03/02/24 12:10 Blood Pressure 151/86 H 03/02/24 12:10 Blood Pressure Position Sitting 03/02/24 12:10 Pulse Oximetry 95 03/02/24 12:10 Oxygen Delivery Method Room Air 03/02/24 12:10 Oxygen Flow Rate 0 03/02/24 12:10 Pain Level 8 03/02/24 12:10 Medical Decision Making Emergent evaluation of acute left shoulder pain. Initial differential includes fracture, dislocation, contusion, ligamentous injury. Patient is on blood thinner, no signs of head trauma. i don't think he needs a head CT based on the mechanism of injury at this time . pain control offered. xray obtained, no evidence of acute bony process. on re-eval patient's ROM had improved. offered sling for comfort. robaxin rx for soreness. continue tylenol for pain . f/u if not improving, may have ligamentous injury and need MRI. Medical Records Medical records reviewed: Yes I reviewed the patient's medical records. Quality:SDOH Health Related Social Needs: No Data to Display PFSH All Active Problems Acute pain of left shoulder (Acute) Left hip pain (Acute) Venous stasis (Acute) Traumatic open wound of lower leg with delayed healing (Acute) Atrial fibrillation (Acute 03/29/16) cardioverson 12/09 Cardiomyopathy (Acute 09/03/13) non ischemic EF 60-65 2015 Colon polyp (Acute 05/26/15) serrated adenoma Depressive disorder (Acute 09/03/13) Essential hypertension (Acute) Hypercholesterolemia (Acute 03/09/08) Male erectile disorder (Acute 09/03/13) Morbid obesity due to excess calories (Acute 08/25/15) Sleep apnea (Acute 09/03/13) Stasis dermatitis (Acute 09/03/13) Type 2 diabetes mellitus without complication (Acute 03/22/16) Seizure disorder (Acute 09/03/13) History of Nisa-en-Y gastric bypass (Acute) Lipoma (Acute) Non-healing wound of right lower extremity (Acute) Medical History Hx of atrial fibrillation, no current medication pt. is currently on meds for this, see summary Cardiomyopathy Hypercholesteremia Stasis dermatitis Depression Essential hypertension KELLY (obstructive sleep apnea) Surgical History History of surgery on lower extremity R leg, tumor removal, pt. reports in 1970s Total replacement of hip RIGHT Colonoscopy - MAC (05/12/15) Dr. Jose Guadalupe Casillas Arthroplasty of knee X 2, hpt. reports these were scopes Family History Mother Personal history of malignant neoplasm BONE Father Essential hypertension Personal history of malignant neoplasm PROSTATE Heart disease Sister Essential hypertension Social History Smoking/Tobacco Use Status: Former Tobacco Use Quit Date: 09/24/81 Smoking risk assessment performed?: Yes Alcohol Intake: current Alcohol Intake frequency: a few times a week Alcohol type: wine Drug use: Never Substance use type: does not use Details: alcohol: t-5. one glass What type of physical activity do you participate in: walking Duration: 15-30 minutes/day Frequency: 3-4 times per week Do you feel safe at home: Yes Do you feel safe in your relationship?: Yes
[2024-03-02 14:14] VITALS: BP 151/86; PULSE 67; RESP 14; TEMP 36.6; O2SAT 95
== END 2024-03-02 14:11 | disposition home or self-care (01) ==
PROVIDERS: Emergency Provider Emergency Medicine; PCP Nurse Practitioner Family
DX: M25.512 Pain in left shoulder (principal); I48.91 Unspecified atrial fibrillation; I10 Essential (primary) hypertension; E11.9 Type 2 diabetes mellitus without complications; E78.00 Pure hypercholesterolemia, unspecified; Z79.4 Long term (current) use of insulin; Z79.01 Long term (current) use of anticoagulants; Z98.84 Bariatric surgery status
CPT/HCPCS: 99283; 73030

== ENCOUNTER → 2024-03-26 02:00 | Outpatient (CLI) | payer BC, SELFPAY ==
--- NOTE | 2024-03-26 08:15 | DI.MRI_ITS ---
Exam(s) MR UPPER JOINT LT WO EXAM: MR UPPER JOINT LT WO CLINICAL HISTORY: ? RTC TEAR, ACUTE PAIN LT SHOULDER, M25.512 TECHNIQUE: Multiplanar multisequence MRI of the shoulder was performed. COMPARISON: CR,XR XR SHOULDER LT COMPLETE 2+V from 03/02/2024 FINDINGS: MARROW:There is no evidence of fracture, Hill-Sachs deformity, nor ominous osseous lesions. GLENOHUMERAL JOINT: There is a joint effusion which extends into the subacromial-subdeltoid space due to full-thickness rotator cuff tear (see below). Joint effusion also extends down the biceps tendon sheath as well as into the medial subcoracoid recess. Also into the inferior recess without extrava sation at this level (inferior glenohumeral ligament is intact). There is some upward subluxation of the humeral head in the osseous glenoid fossa and diminution of the subacromial space. Minimal dege nerative changes. No osteophytes. No prominent chondral defects. ROTATOR CUFF MECHANISM: AC JOINT/ACROMIUM: There is significant degenerative changes in the AC joint with some impingement at this level.. There is no evidence of os acromiale. Supraspinatus: There is a full-thickness tear with retraction musculotendinous junction to the juncti on of the mid and medial thirds of the humeral head. There is continuity of fluid between the glenoh umeral joint and subacromial space at this level. Mild muscle atrophy. Infraspinatus: There is also a full-thickness tear of the infraspinatus with retraction. No obvious atrophy. Teres Minor: Intact. No evidence of tear nor muscle atrophy. Subscapularis/anterior cuff: The subscapularis tendon exhibits thickening and abnormal signal consist ent with tendinosis. There does not appear to be a full-thickness tear. BICEPS TENDON: The biceps tendon is not displaced from the intertubercular groove. There is some abn ormal signal within the tendon within the intertubercular groove. Mild partial tearing. No medial d isplacement from the intertubercular groove. The intra-articular aspect of the tendon does attached to the anterosuperior labrum. There is fluid in the tendon sheath. No loose intra articular bodies are seen in the biceps tendon sheath. LABRUM: There is some signal abnormality in the anterior superior labrum at the biceps attachment sit e. There does not appear to be prominent signal abnormality in the superior labrum posterior to this level. The posterior labrum is intact. The anterior labrum is intact. Inferior labrum is intact a s is the inferior glenohumeral ligament. No evidence of Bankart osseous lesion. No periosteal strip ping evident. No abnormal intraosseous signal in the anterior osseous glenoid fossa. QUADRILATERAL SPACE: No evidence of mass in the region of the axillary nerve and dorsal circumflex hu meral vessels. Visualized triceps muscle at this level appears unremarkable. IMPRESSION: 1. Large full-thickness tears are evident in the supraspinatus and infraspinatus with retraction musc ulotendinous junction. These tears result in a large bare area over the humeral head with continuity of fluid between the glenohumeral joint and subacromial-subdeltoid space. There is also resultant u pward subluxation of the humeral head in the osseous glenoid and diminution of the subacromial space. 2. There is significant signal abnormality in the anterior cuff-subscapularis consistent with tendini tis-tendinosis but with out full-thickness tear. 3. Somewhat irregular appearance of the nondisplaced biceps tendon within the intertubercular groove indicating some partial tearing. No full-thickness tear nor displacement. There is fluid in the ten don sheath which is in continuity with the glenohumeral joint. 4. No obvious labral tears nor evidence of paralabral cyst. 5. Degenerative changes in the AC joint. 6. Glenohumeral joint effusion. No obvious loose intra-articular bodies. Minimal degenerative pérez ges. No osteophytes. DATA REPOSITORY:
== END ==
PROVIDERS: PCP Nurse Practitioner Family; Visit Provider Student in an Organized Health Care Education/Training Program
DX: M25.512 Pain in left shoulder (principal)
CPT/HCPCS: 73221

== ENCOUNTER 2024-04-25 14:28 | Outpatient (CLI) | payer BC, SELFPAY ==
[2024-04-25 09:49] LABS: Hemoglobin A1C 6.6 % (<5.7)
[2024-04-25 09:57] LABS: CREATININE 1.2 mg/dL (0.70-1.30); Calculated LDL 85 mg/dL (<100); Cholesterol 156 mg/dL (<200); Estimated GFR 64.65 (mL/min/1.73m2); HDL Cholesterol 51 mg/dL (40-60); Potassium 4.8 mmol/L (3.5-5.1); Triglyceride 102 mg/dL (<150)
== END 2024-04-25 14:29 | disposition home or self-care (01) ==
LOC: LBO 14:37
PROVIDERS: PCP Nurse Practitioner Family; Visit Provider Nurse Practitioner Family
DX: I10 Essential (primary) hypertension (principal); Z13.220 Encounter for screening for lipoid disorders; E78.00 Pure hypercholesterolemia, unspecified; Z13.1 Encounter for screening for diabetes mellitus; E11.9 Type 2 diabetes mellitus without complications
CPT/HCPCS: 36415; 80061; 82565; 83036; 84132

== ENCOUNTER 2024-05-16 05:50 | Day surgery (SDC) | payer BC, SELFPAY | END 2024-05-16 05:51 | disposition home or self-care (01) | LOC: SUR 05:50 | PROVIDERS: PCP Nurse Practitioner Family; Visit Provider Student in an Organized Health Care Education/Training Program | DX: M19.012 Primary osteoarthritis, left shoulder (principal); Z53.09 Procedure and treatment not carried out because of other contraindication ==

== ENCOUNTER 2024-05-16 06:07 | Observation (INO) | payer BC, SELFPAY ==
[2024-05-16] VITALS (23 sets, daily range): BP systolic 102–150; BP diastolic 52–96; PULSE 57–87; RESP 14–27; TEMP 36.3–36.5; O2SAT 96–100
--- NOTE | 2024-05-16 06:00 | RT.EKG_ITS ---
APPROVED REPORT Exam: Resting ECG Reason for Exam: stroke Patient Location: E HR:74 bpm ECG Measurements Heart Rate 74 [place] [id number] P [id number] QRSd 116 QRS 86 QT 410 T [id number] QTc 456 Conclusion Atrial fibrillation...V-rate 63- 90, irreg A-activity Ventricular premature complex...V complex w/ short R-R interval Aberrant conduction of SV complex(es)...aberrant shape, TN 80-220 Nonspecific intraventricular conduction delay...QRSd >115mS, not LBBB/RBBB Probable anterior infarct, old...Q >40mS, V2-V5 Nonspecific T abnormalities, lateral leads...T <-0.10mV, I aVL V5 V6 Physician: no stemi, unchanged from prior
--- NOTE | 2024-05-16 06:00 | DI.CT_ITS ---
Exam(s) CT BRAIN NECK CTA EXAM: CT BRAIN NECK CTA CLINICAL HISTORY: left listing and weakness actue, eval for stroke. TECHNIQUE: Imaging Protocol: Axial CT angiography was performed with multi-slice acquisition and mu lti-planar and MIP reconstructions. CONTRAST MATERIAL: Intravenous: Omnipaque 350 Contrast volume:70 ml COMPARISON: No exams were available for comparison FINDINGS: CT Head W/O and W contrast: Ventricles and Extra axial spaces: Normal in size and morphology for the patient's age. Hemorrhage: None. Cerebral parenchyma: No evidence of acute infarct or mass. Midline shift: None. Brainstem/Cerebellum: No acute findings.. Calvarium: Normal. Visualized Paranasal sinuses/Mastoids: Clear. Soft Tissues: Unremarkable. Enhancement: Normal. CTA Brain W: Internal Carotid Arteries: Petrous: Normal. Cavernous: Normal. Cerebral: Normal. Middle Cerebral Arteries: Right: No aneurysm, occlusion or significant stenosis. Left: No aneurysm, occlusion or significant stenosis. Anterior Cerebral Arteries: Right: No aneurysm, occlusion or significant stenosis. Left: No aneurysm, occlusion or significant stenosis. Posterior cerebral Arteries: Right: No aneurysm, occlusion or significant stenosis. Left: No aneurysm, occlusion or significant stenosis. Vertebral Arteries: Right: No aneurysm, occlusion or significant stenosis. Left: No aneurysm, occlusion or significant stenosis. Basilar Artery: No aneurysm, occlusion or significant stenosis. CTA Neck W: Exam mildly limited by motion. Common Carotid: Right: Mild plaque at bulb. No dissection, occlusion or significant stenosis. Left: Focal plaque at bulb. No dissection, occlusion or significant stenosis. External Carotid: Right: No dissection, occlusion or significant stenosis. Left: No dissection, occlusion or significant stenosis. Internal Carotid: Right: No dissection, occlusion or significant stenosis. Left: No dissection, occlusion or significant stenosis. Vertebral Artery: Right: No dissection, occlusion or significant stenosis. Left: No dissection, occlusion or significant stenosis. Lung Apices: No acute findings. Bones: No acute abnormality. Soft Tissues: Normal. IMPRESSION: 1. CTA brain: Normal CTA examination of the [place]. 2. Head CT: Unremarkable CT Head. 3. CTA neck: Plaque at the common carotid bulbs, left greater than right without significant stenosis . RADIATION DOSE DELIVERED: Total DLP DATA REPOSITORY: All CT scans at this facility are submitted to the National Radiology Data Registry (NRDR) Dose Index Registry (DIR) with the [employer] ([employer]). RADIATION OPTIMIZATION: All CT scans at this facility use at least one of these dose optimization te chniques: automated exposure control; mA and/or kV adjustment per patient size (includes targeted exa ms where dose is matched to clinical indication); or iterative reconstruction.
--- NOTE | 2024-05-16 06:10 | ED.GENADUL_ITS ---
Discharge Plan Disposition Patient Disposition: Admit to [facility] Condition: Good Discharge Details Chief Complaint: CVA/TIA Clinical Impression: Brain TIA Admit Date/Time: 05/16/24 09:02 Admit Provider: Rock Marlow Attending Provider: Rcok Marlow Primary Care Provider: Hermelindo Brown ED Provider: Reny Avalos Discharge Data Discharge Date/Time-TO BE ENTERED AT DEPARTURE: 05/16/24 13:44 HPI General Date/Time Provider Initiated Documentation: 05/16/24 06:07 . HPI Narrative: This is a 69-year-old male with a past medical history of atrial fibrillation on Eliquis, hypertension, high cholesterol, type 2 diabetes, who recently injured his left rotator cuff and was scheduled to have surgery this morning, presents this morning for stroke. Patient did not take his morning medications as he was having surgery scheduled for this morning. At about 5:55 AM they were in the preoperative waiting room when the patient felt slightly dizzy, began leaning to the left hand side, speaking atypically, and not feeling well. A staff emergency code was called, and myself and the emergency staff came to the preop waiting room to evaluate the patient. Those symptoms were continuing. He denies any headache or chest pain. He denies any shortness of breath. He denies any falls or trauma. is at bedside and she states that he is acting atypically compared to normal. Patient has no other complaints. He did have an echocardiogram performed just 24 to 48 hours ago. This was unremarkable aside from mild CHF with an ejection fraction of around 40%. No atrial septal defect was noted. Patient has no other complaints at this time. Related Data Home Medications ?Medication ?Instructions ?Recorded ?Confirmed sildenafil 100 mg tablet (Viagra) 50 - 100 mg (0.5 - 1 x 100 mg) PO 03/26/23 05/16/24 ONCE PRN sexual activity #30 tab-caps terazosin 1 mg capsule 1 mg PO HS #90 tab-caps 08/03/23 05/16/24 furosemide 40 mg tablet 40 mg PO DAILY #90 tab-caps 11/02/23 05/16/24 apixaban 5 mg tablet (Eliquis) 5 mg PO BID anticoagulation #180 01/07/2405/16 tabs sertraline 100 mg tablet 100 mg PO DAILY #90 tab-caps 05/07/24 05/16/24 lisinopril 30 mg tablet 60 mg PO HS 05/15/24 05/16/24 metformin 500 mg tablet 500 mg PO HS 05/15/24 05/16/24 metoprolol succinate 100 mg 100 mg PO HS 05/15/24 05/16/24 tablet,extended release 24 hr simvastatin 40 mg tablet 40 mg PO HS 05/15/24 05/16/24 Previous Rx's ?Medication ?Instructions ?Recorded sildenafil 100 mg tablet (Viagra) 50 - 100 mg (0.5 - 1 x 100 mg) PO 03/26/23 ONCE PRN sexual activity #30 tab-caps terazosin 1 mg capsule 1 mg PO HS #90 tab-caps 08/03/23 furosemide 40 mg tablet 40 mg PO DAILY #90 tab-caps 11/02/23 apixaban 5 mg tablet (Eliquis) 5 mg PO BID anticoagulation #180 01/07/24 tabs sertraline 100 mg tablet 100 mg PO DAILY #90 tab-caps 05/07/24 Allergies Allergy/AdvReac Type Severity Reaction Status Date / Time No Known Allergies Allergy Verified 05/16/24 06:33 General CHIDI: 4 Review of Systems All systems reviewed & are unremarkable except as noted in HPI and below Exam Narrative Exam Narrative: 1.Const: Well-nourished, Well-developed, appearing stated age 2.Eyes: PERRL, no conjunctival injection, and symmetrical lids. 3.ENT: Atraumatic external nose and ears. Moist MM. Neck: Symmetric, trachea midline, No thyromegaly. 4.CVS: +S1/S2, No murmurs or gallops. Peripheral pulses 2+ and equal in all e xtremities. Brisk capillary refill in all extremities. 5.RESP: Unlabored respiratory effort. Clear to auscultation bilaterally. No wheezes rales or rhonchi 6.GI: Soft, Nontender/Nondistended, No hepatosplenomegaly. No guarding or rebound. 7.MSK: Normocephalic/Atraumatic, Extremities w/o deformity or ttp No cyanosis or clubbing, Normal movement of all extremities 8.Skin: Warm, Dry. No rashes or lesions. 9.Neuro: disability attorney II-XII grossly intact. Sensation grossly intact, patient does appear to have some neglect for the left-hand side. Exam is slightly limited secondary to the pain in his shoulder which she was scheduled to have surgery for today, however he has notable difficulty controlling and moving his left upper extremity in general. Right upper extremity is functioning normally. Unable to evaluate peripheral vision for the patient as he keeps looking to the left and right define the target. Concern for bitemporal hemianopsia. No evidence of rotatory or vertical nystagmus. The patient demonstrated a normal tqrmrs-cgpp-rjryxx on the right, but unable to completely perform it on the left upper extremity. He appears to demonstrate some neglect for the left upper extremity, but is eventually able to somewhat move it back to his nose. There was evidence of dysdiadochokinesia for the left. Patient was unable to ambulate . Right lower extremity demonstrates normal movements and strength, left lower extremity is completely unable to move however sensation present throughout. Sensation was intact bilaterally . Patient was able to verbalize butter cup with no slurring, or miss pronunciation. 10.Psych: (AAO) x3. Appropriate mood and affect Medical Decision Making This is a 69-year-old male with a past medical history of atrial fibrillation on Eliquis, hypertension, high cholesterol, type 2 diabetes, who recently injured his left rotator cuff and was scheduled to have surgery this morning, presents this morning for stroke. Patient did not take his morning medications as he was having surgery scheduled for this morning. He has not had his Eliquis for 48 hours. At about 5:55 AM they were in the preoperative waiting room when the patient felt slightly dizzy, began leaning to the left hand side, speaking atypically, and not feeling well. A staff emergency code was called, and myself and the emergency staff came to the preop waiting room to evaluate the patient. Those symptoms were continuing. He denies any headache or chest pain. He denies any shortness of breath. He denies any falls or trauma. is at bedside and she states that he is acting atypically compared to normal. Patient has no other complaints. He did have an echocardiogram performed just 24 to 48 hours ago. This was unremarkable aside from mild CHF with an ejection fraction of around 40%. No atrial septal defect was noted. Patient has no other complaints at this time. Physical exam demonstrates neglect and inattention for the left upper extremity, complete lack of movement for the left lower extremity. Patient demonstrates an NIH stroke scale of 9 being positive for 1 point for partial hemianopia, which I believe is bitemporal, 1 point for left upper extremity drift, 4 points for left lower extremity lack of movement, 2 points for ataxia in 2 limbs, and 1 point for inattention. Concern for ischemic versus hemorrhagic stroke. Will get CT scan, check labs, EKG shows A-fib, will monitor closely and reassess. 8:03 AM Laboratory workup returned, no significant white count bandemia or left shift. Electrolytes normal. Renal function good. BUN slightly high 28. 500 cc bolus will be administered. Patient continued to demonstrate strokelike symptoms, CT scan showed no evidence of bleed or occlusion. We did consult the help of [facility] teleneurology, they also evaluated the patient and after evaluation of the patient we are all having a shared discussion about the risks and benefits of tPA/TNK. Quite ironically during that conversation the patient had a sudden rapid improvement of his symptomatology. His left lower extremity began moving, his left upper extremity regained its normal status. His NIH stroke score dropped to about 0 or 1. He was able to get up and ambulate with mild/minimal assistance. His deficits notably resolved. With this rapid improvement of s ymptomatology, it did become a contraindication for the tPA/TNK. The case was reviewed with the neurologist at bedside during the entirety of this process, and she no longer recommends tPA/TNK. We discussed this with the patient, and the patient would like to hold off on the medication as well. Neurology does recommend 325 of aspirin and 300 of Plavix load. We will get an MRI of the brain, bilateral lower extremity ultrasounds. We will need to do a bubble study/echo to evaluate for ASD or VSD. Although on review from prior echo there did not seem to be any evidence of significant deficit but I am not completely certain if bubble study was done. We will reach out to the hospitalist for admission. FINDINGS: ANTERIOR CIRCULATION: Right internal carotid artery: Intracranial segment is patent with no significant stenosis or occlusion. No aneurysm. Right middle cerebral artery: No occlusion or significant stenosis. No aneurysm. Right anterior cerebral artery: No occlusion or significant stenosis. No aneurysm. Left internal carotid artery: Intracranial segment is patent with no significant stenosis. No aneurysm. Left middle cerebral artery: No occlusion or significant stenosis. No aneurysm. Left anterior cerebral artery: No occlusion or significant stenosis. No aneurysm. POSTERIOR CIRCULATION: Right vertebral artery: No occlusion or significant stenosis. No aneurysm. Left vertebral artery: No occlusion or significant stenosis. No aneurysm. Basilar artery: No occlusion or significant stenosis. No aneurysm. Right posterior cerebral artery: No occlusion or significant stenosis. No aneurysm. Left posterior cerebral artery: No occlusion or significant stenosis. No aneurysm. HEAD: Brain: Normal. No hemorrhage. Unremarkable white matter. No mass effect. Cerebral ventricles: Normal. No ventriculomegaly. Bones: Unremarkable. No acute fracture. Paranasal sinuses: Visualized sinuses are normal. No fluid levels. Mastoid air cells: Visualized mastoids are normal. No mastoid effusion. Soft tissues: Unremarkable. IMPRESSION: 1. No large vessel occlusion. 2. Unremarkable CT head. FINDINGS: Right common carotid artery: No stenosis. No dissection or occlusion. Right internal carotid artery: No stenosis of the extracranial segment. No dissection or occlusion. Right external carotid artery: No occlusion or stenosis of the origin. Left common carotid artery: Atherosclerotic plaque within the carotid bulb. No stenosis. No dissection or occlusion. Left internal carotid artery: No stenosis of the extracranial segment. No dissection or occlusion. Left external carotid artery: No occlusion or stenosis of the origin. Right vertebral artery: No stenosis. No dissection or occlusion. Left vertebral artery: No stenosis. No dissection or occlusion. Soft tissues: Normal. No significant soft tissue swelling. Bones/joints: No acute fracture. IMPRESSION: No stenosis or occlusion Quality:[facility] Health Related Social Needs: No Data to Display Critical Care Time Critical Care Time Critical Care Time: Yes Total Critical Care Time: 65 Attestation: Upon my evaluation, this patient had a high probability of imminent or life- threatening deterioration, which required my direct attention, intervention, and personal management. I have personally provided 65 minutes of critical care time exclusive of time spent on separately billable procedures. Time includes review of laboratory data, radiology results, discussion with consultants, and monitoring for potential decompensation. Interventions were performed as documented. PFSH All Active Problems (Updated 05/16/24 @ 22:52 by Abebe Fowler DO) Brain TIA (Acute) DVT prophylaxis (Acute) Transient ischemic attack (Acute) Rupture of right proximal biceps tendon (Acute ~02/25/24) Left rotator cuff tear (Acute ~03/02/24) Left hip pain (Acute) Venous stasis (Acute) Traumatic open wound of lower leg with delayed healing (Acute) Atrial fibrillation (Acute 03/29/16) cardioverson 12/09 Cardiomyopathy (Acute 09/03/13) non ischemic EF 60-65 2016 Colon polyp (Acute 05/26/15) serrated adenoma Depressive disorder (Acute 09/03/13) Essential hypertension (Acute) Hypercholesterolemia (Acute 03/09/08) Male erectile disorder (Acute 09/03/13) Morbid obesity due to excess calories (Acute 08/25/15) Sleep apnea (Acute 09/03/13) Stasis dermatitis (Acute 09/03/13) Type 2 diabetes mellitus without complication (Acute 03/22/16) Seizure disorder (Acute 09/03/13) History of Nisa-en-Y gastric bypass (Acute) Lipoma (Acute) Non-healing wound of right lower extremity (Acute) Medical History Hx of atrial fibrillation, no current medication pt. is currently on meds for this, see summary Cardiomyopathy Hypercholesteremia Stasis dermatitis Depression Essential hypertension KELLY (obstructive sleep apnea) Surgical History History of surgery on lower extremity R leg, tumor removal, pt. reports in 1970s Total replacement of hip RIGHT Colonoscopy - MAC (05/12/15) Dr. Jose Guadalupe Casillas Arthroplasty of knee X 2, hpt. reports these were scopes Family History Mother Personal history of malignant neoplasm BONE Father Essential hypertension Personal history of malignant neoplasm PROSTATE Heart disease Sister Essential hypertension Social History Smoking/Tobacco Use Status: Former Tobacco Use Quit Date: 09/24/81 Smoking risk assessment performed?: Yes Alcohol Intake: current Alcohol Intake frequency: a few times a week Alcohol type: wine Drug use: Never Substance use type: does not use Details: alcohol: t-5. one glass Housing: apartment What type of physical activity do you participate in: walking Duration: 15-30 minutes/day Frequency: 3-4 times per week Do you feel safe at home: Yes Do you feel safe in your relationship?: Yes Sign Out Sign Out Data: Sign Out Comment: Strokelike symptoms with significant left-sided deficits. NIH improved, no longer tPA candidate. Recommend admission with MRI/MRA, ultrasound of the legs, and bubble echo study Last updated by Abebe Fowler DO at 05/16/24 08:16
[2024-05-16 06:23] LABS: Abs Immature Grans 0.03 10^3/uL (0.0-0.06); Absolute Basophil Count 0.03 10^3/uL (0.0-0.2); Absolute Eosinophil Count 0.09 10^3/uL (0.0-0.7); Absolute Lymphocyte Count 2.75 10^3/uL (1.2-3.4); Absolute Monocyte Count 0.52 10^3/uL (0.1-0.8); Absolute Neutrophil Count 4.62 10^3/uL (1.2-6.7); Basophils % 0.4 %; Eosinophils % 1.1 %; HCT 41.5 % (40.0-50.0); HGB 12.9 g/dL (13.5-17.5); Immature Grans % 0.4 %; Lymphocytes % 34.2 %; MCH 29.4 pg (27.0-33.0); MCHC 31.1 % (32.0-36.0); MCV 95 fL (80-95); MPV 10.5 fL (8.0-11.0); Monocytes % 6.5 %; Neutrophils % 57.4 %; Platelet Count 198 10^3/uL (130-400); RBC 4.39 10^6/uL (4.36-5.78); RDW 14.4 % (11.8-14.1); WBC 8.04 10^3/uL (4.4-10.8)
[2024-05-16 06:36] LABS: PTT Activated 24.1 sec (23.6-32.8); Prothrombin Time 10.2 sec (9.1-11.1)
[2024-05-16] MEDS: Normal Saline - Diluent 50 ML VIAL IJ (06:40)
[2024-05-16 06:41] LABS: ALT 28 U/L (16-63); AST 13 U/L (15-37); Alkaline Phosphatase 68 U/L (46-116); Anion Gap 8.7 mmol/L (3-11); BUN 28 mg/dL (7-18); Bilirubin, Total 0.46 mg/dL (0.2-1.0); CO2 23.3 mmol/L (21.0-32.0); CREATININE 1.1 mg/dL (0.70-1.30); Calcium 8.6 mg/dL (8.5-10.1); Chloride 108 mmol/L (98-107); Estimated GFR 71.77 (mL/min/1.73m2); Glucose 163 mg/dL (74-106); Potassium 5.1 mmol/L (3.5-5.1); Sodium 140 mmol/L (136-145); Total Protein 7.7 g/dL (6.4-8.2); Troponin I < 50 ng/L (< or =60)
[2024-05-16] MEDS: Omnipaque 350 MG/ML 100 ML BTL IJ (06:41)
--- NOTE | 2024-05-16 07:07 | DI.VRAD_ITS ---
PROCEDURE INFORMATION: Exam: CTA Head Without And With Contrast, Arteriography Exam date and time: 05/16/2024 6:27 AM Age: 69 years old Clinical indication: Stroke-like symptoms; Other: Left listing and weakness actue, eval for stroke TECHNIQUE: Imaging protocol: Computed tomographic angiography of the head without and with contrast. Exam focused on the arteries. 3D rendering (Not supervised by radiologist): MIP and/or 3D reconstructed images were created by the technologist. Contrast material: OMNI 350; Contrast volume: 70 ml; Contrast route: INTRAVENOUS (IV); Other technique: STROKE PROTOCOL was implemented. COMPARISON: No relevant prior studies available. FINDINGS: ANTERIOR CIRCULATION: Right internal carotid artery: Intracranial segment is patent with no significant stenosis or occlusion. No aneurysm. Right middle cerebral artery: No occlusion or significant stenosis. No aneurysm. Right anterior cerebral artery: No occlusion or significant stenosis. No aneurysm. Left internal carotid artery: Intracranial segment is patent with no significant stenosis. No aneurysm. Left middle cerebral artery: No occlusion or significant stenosis. No aneurysm. Left anterior cerebral artery: No occlusion or significant stenosis. No aneurysm. POSTERIOR CIRCULATION: Right vertebral artery: No occlusion or significant stenosis. No aneurysm. Left vertebral artery: No occlusion or significant stenosis. No aneurysm. Basilar artery: No occlusion or significant stenosis. No aneurysm. Right posterior cerebral artery: No occlusion or significant stenosis. No aneurysm. Left posterior cerebral artery: No occlusion or significant stenosis. No aneurysm. HEAD: Brain: Normal. No hemorrhage. Unremarkable white matter. No mass effect. Cerebral ventricles: Normal. No ventriculomegaly. Bones: Unremarkable. No acute fracture. Paranasal sinuses: Visualized sinuses are normal. No fluid levels. Mastoid air cells: Visualized mastoids are normal. No mastoid effusion. Soft tissues: Unremarkable. IMPRESSION: 1. No large vessel occlusion. 2. Unremarkable CT head. ASSESSMENT: ASPECTS ([place] Stroke Program Early CT Score) is 10. PROCEDURE INFORMATION: Exam: CTA Neck Without And With Contrast Exam date and time: 05/16/2024 6:27 AM Age: 69 years old Clinical indication: Stroke-like symptoms; Other: Left listing and weakness actue, eval for stroke TECHNIQUE: Imaging protocol: Computed tomographic angiography of the neck without and with contrast. Exam focused on the cervical segments of the vasculature. 3D rendering (Not supervised by radiologist): MIP and/or 3D reconstructed images were created by the technologist. Contrast material: OMNI 350; Contrast volume: 70 ml; Contrast route: INTRAVENOUS (IV); COMPARISON: CT UPPER EXTREMITY LT WO 04/24/2024 8:29 AM FINDINGS: Right common carotid artery: No stenosis. No dissection or occlusion. Right internal carotid artery: No stenosis of the extracranial segment. No dissection or occlusion. Right external carotid artery: No occlusion or stenosis of the origin. Left common carotid artery: Atherosclerotic plaque within the carotid bulb. No stenosis. No dissection or occlusion. Left internal carotid artery: No stenosis of the extracranial segment. No dissection or occlusion. Left external carotid artery: No occlusion or stenosis of the origin. Right vertebral artery: No stenosis. No dissection or occlusion. Left vertebral artery: No stenosis. No dissection or occlusion. Soft tissues: Normal. No significant soft tissue swelling. Bones/joints: No acute fracture. IMPRESSION: No stenosis or occlusion. REFERENCES: NASCET CRITERIA. The degree of stenosis in the cervical segment of the internal carotid artery is based on NASCET criteria. Normal is no stenosis. Mild is less than 50% stenosis. Moderate is 50-69% stenosis. Severe is 70% to 99% stenosis. Total occlusion is no detectable patent lumen. Dictated and Authenticated by: Alex Stallings MD. Ordering:LOC Lomas MD
--- NOTE | 2024-05-16 08:00 | DI.MRI_ITS ---
Exam(s) MR ANGIO BRAIN WO CLINICAL HISTORY: post left sided stroke. TECHNIQUE: 3D [id number] study was performed without contrast. COMPARISON: CTA brain performed earlier the same day FINDINGS: Carotid Arteries: Petrous: Normal. Cavernous: Normal. Cerebral: Normal. Middle Cerebral Arteries: Right: No aneurysm or significant stenosis. Left: No aneurysm or significant stenosis. Anterior Cerebral Arteries: Right: No aneurysm or significant stenosis. Left: No aneurysm or significant stenosis. Posterior cerebral arteries: Right: No aneurysm or significant stenosis Left: No aneurysm or significant stenosis Vertebral Arteries: Right: No aneurysm or significant stenosis. No dissection. Left: No aneurysm or significant stenosis. No dissection.. Basilar Artery: No aneurysm or significant stenosis. Small Vessels: No evidence of beading. IMPRESSION: Normal MRA examination of the [place]. DATA REPOSITORY:
--- NOTE | 2024-05-16 08:00 | DI.MRI_ITS ---
Exam(s) MR ANGIO NECK WO EXAM: MR ANGIO NECK WO CLINICAL HISTORY: post left sided stroke. TECHNIQUE: 2D and 3D [id number]-syhbmv MRA of the Neck was performed. COMPARISON: CT CT BRAIN NECK CTA from 05/16/2024 FINDINGS: Common Carotid: 2D vhni-pc-bvoilp images limited by motion. Right: No dissection, occlusion or significant stenosis. Left: Focal narrowing at common carotid bulb without significant stenosis. No dissection, occlusion or significant stenosis. External Carotid: Right: No evidence of occlusion or significant stenosis. Left: No evidence of occlusion or significant stenosis. Internal Carotid: Right: No dissection, occlusion or significant stenosis. Left: No dissection, occlusion or significant stenosis. Vertebral Artery: Right: No dissection, occlusion or significant stenosis. Left: No dissection, occlusion or significant stenosis. The visualized paraspinal soft tissues are unremarkable. IMPRESSION: Focal area of mild narrowing at the common carotid bulb on the left. No significant internal carotid artery stenosis. Vertebral arteries are normal in diameter. DATA REPOSITORY:
--- NOTE | 2024-05-16 08:00 | DI.US_ITS ---
Exam(s) US EXTREMITY VENOUS BI EXAM: US EXTREMITY VENOUS BI CLINICAL HISTORY: eval lower extremities for dvt. TECHNIQUE: Bilateral lower extremity venous ultrasound performed using grayscale, color-flow, and sp ectral Doppler analysis. COMPARISON: No exams were available for comparison FINDINGS: The bilateral common femoral, femoral and popliteal veins demonstrate normal compressibility, augment ation, and color Doppler. The posterior tibial veins are patent. IMPRESSION: Right: Negative for DVT Left: Negative for DVT DATA REPOSITORY:
[2024-05-16] MEDS: Aspirin 325 MG TAB PO (08:14)
[2024-05-16] MEDS: Clopidogrel 300 MG TAB PO (08:14)
--- NOTE | 2024-05-16 08:15 | DI.MRI_ITS ---
Exam(s) MR BRAIN WO EXAM: MR BRAIN WO CLINICAL HISTORY: left stroke like symptoms. TECHNIQUE: Multiplanar multisequence MRI of the brain was performed. CONTRAST MATERIAL: Noncontrast COMPARISON: CT CT BRAIN NECK CTA from 05/16/2024 MR MR ANGIO BRAIN WO from 05/16/2024 FINDINGS: VENTRICLES AND EXTRA AXIAL SPACES: Normal in size and morphology for the patient's age. HEMORRHAGE: None. CEREBRAL PARENCHYMA: No focus of restricted diffusion to suggest acute infarct. No space-occupying le nate identified. No significant white matter changes. MIDLINE SHIFT: None. BRAINSTEM/CEREBELLUM: Normal. CALVARIUM: Normal. ENHANCEMENT: No suspicious enhancement identified. VISUALIZED PARANASAL SINUSES/MASTOIDS: Clear. Orbits: Unremarkable. Pituitary: Normal. Vasculature: Normal flow voids. IMPRESSION: Unremarkable MRI of the brain. DATA REPOSITORY:
[2024-05-16] MEDS: Normal Saline 500 ML IV (10:48)
[2024-05-16 11:16] LABS: Troponin I < 50 ng/L (< or =60)
--- NOTE | 2024-05-16 11:38 | W.EDPROG ---
Date of service: 05/16/24 Time of Service: 11:38 Medical Decision Making Patient signed out from off going provider, concern for acute strokelike symptoms. Initial imaging negative. During teleneuro evaluation, symptoms resolved. Teleneuro recommendations have been provided. Discussed with hospitalist to admit for further TIA workup. Quality:[facility] Health Related Social Needs: No Data to Display Sign Out Sign Out Data: Sign Out Comment: Strokelike symptoms with significant left-sided deficits. NIH improved, no longer tPA candidate. Recommend admission with MRI/MRA, ultrasound of the legs, and bubble echo study Last updated by Abebe Fowler DO at 05/16/24 08:16 Discharge Plan Discharge Details Chief Complaint: CVA/TIA Admit Date/Time: 05/16/24 09:02 Admit Provider: Rock Marlow Attending Provider: Rock Marlow Primary Care Provider: Hermelindo Brown ED Provider: Reny Avalos
--- NOTE | 2024-05-16 12:03 | W.PM.HP.N ---
Date of service: 05/16/24 Time of Service: 12:03 Assessment and Plan Assessment and plan (1) Transient ischemic attack: Status: Acute Assessment and plan: MRI of the brain was unremarkable there is no evidence of a CVA. Patient's functional symptoms of left hemiparesis dysarthric speech and visual scotomata have resolved rapidly and have not reoccurred. Unfortunately an echocardiogram with bubbles was not done today however he had an echocardiogram a couple days prior to his surgery which shows he has mild cardiomyopathy with LVEF of 40% with global hypokinesis. Given his chronic atrial fibrillation presumptively he had an embolic TIA which resolved on its own. At this point patient should be started back on a DOAC rather than treated with Plavix and aspirin. This is based on the CELAI study on early vs late anticoagulation for stroke with atrial fibrillation. This showed a reduced risk of recurrent ischemic stroke and patient's who was started on anticoagulation early rather than late. As the patient had previously been on apixaban he should resume the apixaban rather than going on dual antiplatelet therapy at this point We will monitor him overnight on telemetry doing neurochecks if he has no further neurologic sequelae he will be discharged home in the morning with a follow-up echo bubble study next week. I do not believe getting a bubble study as an inpatient would change our management strategy. He should try for further risk reduction which she is already doing by controlling his diabetes and his lipids. I will get a follow-up lipid study in the morning to see what his current cholesterol level is. I would not check another glycohemoglobin A1c as he had 1 done 2 weeks ago and it was 6.6%. He is already using a CPAP machine for his obstructive sleep apnea and in fact he is lost 90 pounds over the last few years. I did recommend the patient and his family that he follow-up with a neurologist upon discharge and we will make a referral to Dr. Kely Vail, local neurologist for further recommendations for risk reduction as well as for strategy regarding how to prepare him for future surgical procedure on his shoulder. I did talk briefly with them about a bridge therapy strategy of using enoxaparin after he comes off of his apixaban and remaining on enoxaparin until 12 hours before his surgical time. Typically bridge therapy is not used routinely in patients in atrial fibrillation however given that he had a TIA and had no occlusive cerebrovascular or cervical vascular disease it may be worthwhile pursuing bridge therapy in the days leading up to surgery. Also he may be considered for BLAYNE to see if he has a thrombus in his left ventricle or left atrium given that he has a cardiomyopathy and a dilated left atrium. For today I withheld his lisinopril and furosemide to allow a little higher blood pressure given the TIA today or tomorrow think he can resume his antihypertensive and anti-CHF therapy. Have kept him on his metoprolol (2) Atrial fibrillation: Status: Acute Assessment and plan: continue Toprol XL w/ holding parameters Qualifiers: Atrial fibrillation type: permanent Qualified Code(s): I48.21 - Permanent atrial fibrillation (3) Cardiomyopathy: Status: Acute Assessment and plan: holding his lasix for today in light of his TIA and recent CTA Qualifiers: Cardiomyopathy type: unspecified Qualified Code(s): I42.9 - Cardiomyopathy, unspecified (4) Essential hypertension: Status: Acute (5) Hypercholesterolemia: Status: Acute Assessment and plan: check lipid profile in a.m. 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: without buttermilk drier operator use Qualified Code(s): E11.9 - Type 2 diabetes mellitus without complications (8) Left rotator cuff tear: Status: Acute Qualifiers: Rotator cuff tear extent: unspecified tear extent Rotator cuff tear trauma status: unspecified whether traumatic Qualified Code(s): M75.102 - Unspecified rotator cuff tear or rupture of left shoulder, not specified as traumatic (9) DVT prophylaxis: Status: Acute Assessment and plan: resume apixaban History of Present Illness History of Present Illness Chief Complaint: stroke like symptoms Narrative: right handed 69 yr old white male w/ hx of cardiomyopathy, essential HTN, DM type II controlled (last HbA1C 6.6% as of 04/25/24), HLD on atorvastatin, chronic atrial fibrillation anticoagulated on apixaban, rate controlled on metoprolo, who was to have left shoulder reverse total shoulder arthoplasty w/ biceps tenodesis to be done today. He stopped his apixaban 2 days ago in preparation for his surgery. While waiting to go back to preop area, at 6 am he noticed blurred vision and says that the clock had two faces. When his came into the waiting area to go back w/ him to the preop area, she noted he did not look right, leaning to the left and his speech was garbled although he seemed to recognize her but when she tried to get him up, he could not walk to acute paresis of his left leg and left arm and left hand. Review of Systems All systems reviewed & are unremarkable except as noted in HPI and below PFSH All Active Problems (Updated 05/16/24 @ 19:19 by Rock Marlow MD) DVT prophylaxis (Acute) Transient ischemic attack (Acute) Rupture of right proximal biceps tendon (Acute ~02/25/24) Left rotator cuff tear (Acute ~03/02/24) Left hip pain (Acute) Venous stasis (Acute) Traumatic open wound of lower leg with delayed healing (Acute) Atrial fibrillation (Acute 03/29/16) cardioverson 12/09 Cardiomyopathy (Acute 09/03/13) non ischemic EF 60-65 2016 Colon polyp (Acute 05/26/15) serrated adenoma Depressive disorder (Acute 09/03/13) Essential hypertension (Acute) Hypercholesterolemia (Acute 03/09/08) Male erectile disorder (Acute 09/03/13) Morbid obesity due to excess calories (Acute 08/25/15) Sleep apnea (Acute 09/03/13) Stasis dermatitis (Acute 09/03/13) Type 2 diabetes mellitus without complication (Acute 03/22/16) Seizure disorder (Acute 09/03/13) History of Nisa-en-Y gastric bypass (Acute) Lipoma (Acute) Non-healing wound of right lower extremity (Acute) Medical History Hx of atrial fibrillation, no current medication pt. is currently on meds for this, see summary Cardiomyopathy Hypercholesteremia Stasis dermatitis Depression Essential hypertension KELLY (obstructive sleep apnea) Surgical History History of surgery on lower extremity R leg, tumor removal, pt. reports in 1970s Total replacement of hip RIGHT Colonoscopy - MAC (05/12/15) Dr. Jose Guadalupe Casillas Arthroplasty of knee X 2, hpt. reports these were scopes Family History Mother Personal history of malignant neoplasm BONE Father Essential hypertension Personal history of malignant neoplasm PROSTATE Heart disease Sister Essential hypertension Social History Smoking/Tobacco Use Status: Former Tobacco Use Quit Date: 09/24/81 Smoking risk assessment performed?: Yes Alcohol Intake: current Alcohol Intake frequency: a few times a week Alcohol type: wine Drug use: Never Substance use type: does not use Details: alcohol: t-5. one glass Housing: apartment What type of physical activity do you participate in: walking Duration: 15-30 minutes/day Frequency: 3-4 times per week Do you feel safe at home: Yes Do you feel safe in your relationship?: Yes Meds Allergies and Home Medications Allergies Allergy/AdvReac Type Severity Reaction Status Date / Time No Known Allergies Allergy Verified 05/16/24 06:33 Home Medications ?Medication ?Instructions ?Recorded ?Confirmed ?Type sildenafil 100 mg tablet (Viagra) 50 - 100 mg (0.5 - 1 x 100 mg) PO 03/26/23 05/16/24 Rx ONCE PRN sexual activity #30 tab-caps terazosin 1 mg capsule 1 mg PO HS #90 tab-caps 08/03/23 05/16/24 Rx furosemide 40 mg tablet 40 mg PO DAILY #90 tab-caps 11/02/23 05/16/24 Rx apixaban 5 mg tablet (Eliquis) 5 mg PO BID anticoagulation #180 01/07/24 05/16/24 Rx tabs sertraline 100 mg tablet 100 mg PO DAILY #90 tab-caps 05/07/24 05/16/24 Rx lisinopril 30 mg tablet 60 mg PO HS 05/15/24 05/16/24 History metformin 500 mg tablet 500 mg PO HS 05/15/24 05/16/24 History metoprolol succinate 100 mg 100 mg PO HS 05/15/24 05/16/24 History tablet,extended release 24 hr simvastatin 40 mg tablet 40 mg PO HS 05/15/24 05/16/24 History Exam Narrative Exam Narrative: Alert and oriented x4 HEENT: Atraumatic normocephalic, pupils equally round reactive to light and accommodation, extraocular motion intact, TMs intact, nares moist and patent without exudate or bleeding, oropharynx noninjected without exudate, teeth in good repair Neck: Supple, nontender, without thyromegaly or lymphadenopathy or JVD. Normal carotid pulses Lungs: Clear to auscultation and percussion Heart: Irregularly irregular at a controlled rate Abdomen: Nondistended, normal bowel sounds, nontender to palpation or percussion, no organomegaly, no bruits, no palpable masses Genitalia and rectal exam: Deferred Extremities: Normal range of motion with normal strength with the exception of his left upper arm which is limited due to his torn rotator cuff he is unable to abduct left arm or raise arm above the horizontal plane. No peripheral cyanosis or edema. Normal pulses, chronic venous stasis skin changes over both tibia Neurologic: Cranial nerves II through XII grossly within normal limits. Normal strength and sensation over the face trunk and extremities. No tremors or asterixis. No dysdiadochokinesia, no past-pointing Results Labs 05/16/24 06:17 05/16/24 06:17 Labs: Laboratory Results - last 24 hr 05/16/24 05/16/24 06:17 10:44 WBC 8.04 RBC 4.39 Hgb 12.9 L Hct 41.5 MCV 95 MCH 29.4 MCHC 31.1 L RDW 14.4 H Plt Count 198 MPV 10.5 Immature Gran % 0.4 Neutrophils % 57.4 Lymphocytes % 34.2 Monocytes % 6.5 Eosinophils % 1.1 Basophils % 0.4 Nucleated RBC % 0.0 Absolute Neutrophils 4.62 Absolute Lymphocytes 2.75 Absolute Monocytes 0.52 Absolute Eosinophils 0.09 Absolute Basophils 0.03 PT 10.2 INR 1.0 APTT 24.1 Sodium 140 Potassium 5.1 Chloride 108 H Carbon Dioxide 23.3 Anion Gap 8.7 BUN 28 H Creatinine 1.1 Est GFR (CKD-EPI 2020) 71.77 Glucose 163 H Calcium 8.6 Total Bilirubin 0.46 AST 13 L ALT 28 Alkaline Phosphatase 68 Troponin I < 50 < 50 Total Protein 7.7 Albumin 4.0 Last Vital Signs Temp 36.4 C L 05/16/24 06:23 Pulse 83 05/16/24 06:23 Resp 23 05/16/24 10:40 BP 138/86 05/16/24 08:10 Pulse Ox 97 05/16/24 06:23 Time Spent Time spent with Patient: 55-74 minutes Time was spent: preparing to see the patient(eg.review tests), obtaining and/or reviewing separately otained hiistory, ordering medications,tests, procedures, referring, communicating with other health acute care nurse practitioner, indepentently interpreting results, counseling the patient and care coordination
--- NOTE | 2024-05-16 13:17 | W.PC.ACHO ---
Registration Status: Primary Language: Preferred Language: ED Information & Data Chief Complaint CVA/TIA 05/16/24 06:23 Chief Complaint CVA/TIA 05/16/24 06:12 Triage Note awaiting dayb surgery when 05/16/24 06:12 staff emergency was called pt found twitching in chair now unable to sit up straight a/ox3, unable to use L leg or arm. pt transferred to ED and stroke alert called Medical / Surgical History (Last Reviewed 05/16/24 @ 06:13 by Abebe Fowler DO) Hx of atrial fibrillation, no current medication Cardiomyopathy Hypercholesteremia Stasis dermatitis Depression Essential hypertension KELLY (obstructive sleep apnea) (Last Reviewed 05/16/24 @ 06:13 by Abebe Fowler DO) History of surgery on lower extremity Total replacement of hip Colonoscopy - MAC (05/12/15) Arthroplasty of knee Most Recent Vital Signs Temperature 36.4 C L 05/16/24 06:23 Temperature Source Skin 05/16/24 06:23 Pulse 83 05/16/24 06:23 Pulse 70 05/16/24 10:40 Respiratory Rate 23 05/16/24 10:40 Respiratory Effort Normal 05/16/24 06:23 Respiratory Depth Normal 05/16/24 06:23 Respiratory Pattern Normal 05/16/24 06:23 Blood Pressure 138/86 05/16/24 08:10 Blood Pressure Mean 34 05/16/24 06:16 Blood Pressure Position Supine 05/16/24 06:23 Pulse Oximetry 97 05/16/24 06:23 Oxygen Delivery Method Room Air 05/16/24 06:23 Oxygen Flow Rate 0 05/16/24 06:12 Allergies No Known Allergies Allergy (Verified 05/16/24 06:33) Active Medications Generic Name Dose Route Start Last Admin Trade Name Freq PRN Reason Stop Dose Admin Iohexol 100 ml 05/16/24 06:45 05/16/24 06:41 Omnipaque 350 Mg/Ml 100 Ml Btl IJ 06/15/24 23:59 70 ml DIRECTED ROBSON Administration Sodium Chloride 50 ml 05/16/24 06:45 05/16/24 06:40 Normal Saline - Diluent 50 Ml Vial IJ 50 ml .FOR DI USE ROBSON Administration IV IV Catheter Type [Right Saline Lock Antecubital] IV Catheter Gauge [Right 18 Antecubital] Diagnostics 05/16/24 05/16/24 Range/Units 10:44 06:17 WBC 8.04 (4.4-10.8) 10^3/uL RBC 4.39 (4.36-5.78) 10^6/uL Hgb 12.9 L (13.5-17.5) g/dL Hct 41.5 (40.0-50.0) % MCV 95 (80-95) fL MCH 29.4 (27.0-33.0) pg MCHC 31.1 L (32.0-36.0) % RDW 14.4 H (11.8-14.1) % Plt Count 198 (130-400) 10^3/uL MPV 10.5 (8.0-11.0) fL Immature Gran % 0.4 % Neutrophils % 57.4 % Lymphocytes % 34.2 % Monocytes % 6.5 % Eosinophils % 1.1 % Basophils % 0.4 % Nucleated RBC % 0.0 (0.0-0.3) % Absolute Neutrophils 4.62 (1.2-6.7) 10^3/uL Absolute Lymphocytes 2.75 (1.2-3.4) 10^3/uL Absolute Monocytes 0.52 (0.1-0.8) 10^3/uL Absolute Eosinophils 0.09 (0.0-0.7) 10^3/uL Absolute Basophils 0.03 (0.0-0.2) 10^3/uL PT 10.2 (9.1-11.1) sec INR 1.0 (0.9-1.1) APTT 24.1 (23.6-32.8) sec Sodium 140 (136-145) mmol/L Potassium 5.1 (3.5-5.1) mmol/L Chloride 108 H (98-107) mmol/L Carbon Dioxide 23.3 (21.0-32.0) mmol/L Anion Gap 8.7 (3-11) mmol/L BUN 28 H (7-18) mg/dL Creatinine 1.1 (0.70-1.30) mg/dL Est GFR (CKD-EPI 2020) 71.77 (mL/min/1.73m2) Glucose 163 H (74-106) mg/dL Calcium 8.6 (8.5-10.1) mg/dL Total Bilirubin 0.46 (0.2-1.0) mg/dL AST 13 L (15-37) U/L ALT 28 (16-63) U/L Alkaline Phosphatase 68 (46-116) U/L Troponin I < 50 < 50 (< or =60) ng/L Total Protein 7.7 (6.4-8.2) g/dL Albumin 4.0 (3.4-5.0) g/dL Intake and Output - 24 Hour Total 05/16/24 06:07 thru 05/16/24 12:04 Intake Total 500 Balance 500 Weight 132.2 kg Intake: IV 500 Falls Risk Assessment History of Falls No History 05/16/24 06:23 Contributing Factors Impairments 05/16/24 06:23 Ambulatory Aids Independent 05/16/24 06:23 Tubes/Lines None 05/16/24 06:23 Gait Evaluation W/no contributing factors 05/16/24 06:23 Cognition No cognitive impairment 05/16/24 06:23 Fall Total Score 13 05/16/24 06:23 Level of Risk Standard/Low Risk 05/16/24 06:23 v v v v v v v v v Sending and/or Receiving Nurses: Please use comment section below to note any information pertinent to the patient hand-off not included above. Information / Comments: Report received from: REGAN Morin
--- NOTE | 2024-05-16 16:15 | NT_ITS ---
PT Notes Visit Reasons: Stroke Patient came in for R rotator cuff surgery this morning but manifested with stroke-like symptoms of difficult speech, left-sided weakness, and altered awareness. he was admitted for work up to rule out CVA or TIA. Patient was sleeping when PT came in and family requested that PT evalaution be done tomor row morning so their father could rest. Weekend on-call PT Pat updated of plan.
--- NOTE | 2024-05-16 17:00 | W.SPSTE ---
Date of service: 05/16/24 Time of Service: 17:15 Subjective Clinical (Bedside) Swallow Evaluation - Inpatient Speech Language Pathology Referred by: Dr. Marlow Start time: 17:15 End time: 17:35 Total patient contact: 20m Referral Type: Routine Swallow Consult Precautions: Standard, Full Code Reason for Referral/HPI: Patient is a 69 y/o M with DM2, cardiomyopathy, HLD, chronic afib on apixaban who had presented earlier this date for a planned surgery when he began to have slurred speech, L neglect, L paresis, and visual changes during pre-op. Stroke alert was called and patient brought to ER. Brain imaging negative and symptoms have since resolved, therefore incident thought to be TIA in setting of paused apixaban in anticipation of shoulder surgery. 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 Cranial nerve exam is without abnormality and there are no significant comorbidities to increase risk of aspiration complication. No further [employer] TECHN[employer] LEAD SENIOR DEVELOPER services needed at this time. DISCHARGE RECOMMENDATIONS: No further [employer]CHN[employer] LEAD SENIOR DEVELOPER services indicated/Please re-refer as needed Diet Recommendations: ? SOLIDS: 7-Regular Solids LIQUIDS: 0-Thin Liquids MEDICATIONS: As tolerated RISK MANAGEMENT: STANDARD ASPIRATION PRECAUTIONS: Level of Assistance/Supervision: Independent Positioning and environment: PO intake only when awake/alert? Oral hygiene BID/2x per day Education Provided to: Patient Family Topics Addressed: anatomy/physiology of swallowing mechanism definition and impacts of aspiration impact of current diagnoses on swallow function role of [employer] TECHN[employer] LEAD SENIOR DEVELOPER in management of swallow disorders overt s/sx to monitor for re: potential aspiration of food / liquids relationship between reflux, GERD and swallow fxn relationship between respiratory function and deglutition SUBJECTIVE: Patient received: alert/awake. Agreeable to evaluation. Pain Reported n/a Baseline Swallow Function: Patient denies swallowing difficulty prior to admission and eats a regular diet at baseline. Patient Denies difficulty chewing. Denies reflux or appetite changes. Denies significant pna hx. Denies breathing difficulties. 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 Speech: WFL Oral Mechanism Examination: Dentition: natural dentition, largely intact (patient missing only 1-2 molars, no impact on mastication. Oral mucosa: Dry, fair oral care ? Cranial Nerve Assessment: CN V ? Trigeminal Facial Sensation WNL Jaw Strength/ROM WNL ?WNL CN VII- Facial WNL labial ROM, strength, coordination. WNL lingual sensation WNL CN IX ? Glossopharyngeal WNL palatal elevation with phonation. No evidence of nasal emissions WNL CN X ? Vagus WNL Vocal quality and volume. Strong/sharp volitional cough WNL CX XII ? Hypoglossal WNL lingual ROM, strength, coordination WNL PO Intake: Trials Assessed: IDDSI 0 Thin Liquids IDDSI 6 Soft & Bite Size Solid IDDSI 7 Regular Solid Oral Phase Findings: WFL Pharyngeal Phase Findings: WFL Esophageal Phase Findings: ? No observed or reported symptoms at bedside ? Zeigler Swallow Protocol Results: PASS Complete/uninterrupted without s/sx aspiration PLAN: No further [employer]CHN[employer] LEAD SENIOR DEVELOPER services indicated at this time. Please re-refer as needed. [employer] TECHNICAL LEAD SENIOR DEVELOPER CPT Code: 86222 Clinical Swallowing Evaluation
[2024-05-16] MEDS: Metoprolol CR 100 MG TABCR PO (19:52)
[2024-05-16] MEDS: Enoxaparin 40 MG/0.4 ML SYR SC (19:52)
[2024-05-16] MEDS: Apixaban 5 MG TAB PO (19:52)
[2024-05-16] MEDS: Simvastatin 40 MG TAB PO (19:52)
[2024-05-16] MEDS: Normal Saline Flush 10 ML SYR IVP (19:53)
--- NOTE | 2024-05-16 20:26 | NUR.NOTE ---
Access chart to reconcile EKG orders and EKG's in [facility]. Duplicate EKG order cancelled. Nursing Note:
--- NOTE | 2024-05-16 21:14 | RESPIRATORY ---
RT spoke with pt. for KELLY. Pt. states he uses CPAP at home occasionally without supplement of O2, which he did not bring with him here this time. Pt. is unsure of it's settings, refused to use hospital's CPAP machine by saying he will be okay without it.
[2024-05-17 03:11] VITALS: BP 116/75; PULSE 68; RESP 18; TEMP 36.4; O2SAT 98
[2024-05-17 07:25] LABS: Calculated LDL 54 mg/dL (<100); Cholesterol 126 mg/dL (<200); HDL Cholesterol 44 mg/dL (40-60); Triglyceride 141 mg/dL (<150)
[2024-05-17 08:00] VITALS: BP 128/71; PULSE 61; RESP 17; TEMP 36.2; O2SAT 96
[2024-05-17] MEDS: Normal Saline Flush 10 ML SYR IVP (08:32)
[2024-05-17] MEDS: Sertraline 100 MG TAB PO (08:34)
[2024-05-17] MEDS: Apixaban 5 MG TAB PO (08:34)
[2024-05-17] MEDS: Enoxaparin 40 MG/0.4 ML SYR SC (08:35)
--- NOTE | 2024-05-17 09:16 | PDOC.CMIN ---
Date of service: 05/17/24 Time of Service: 09:16 Care Management Initial Assmt Initial Assessment Reason for Hospitalization: TIA Functional Status/Living Situation Town of Residence: [facility] Resides with: Spouse (Ro) Employment Status: Employed ([employer]) Instrumental Activities of Daily Living (ADLs): Independent Medications Medication Management: No Issues/Barriers identified Advance Directives Advance Directives: Do you have an Advance Directive: N 05/07/24 13:36 AD On File at [facility]: N 05/07/24 13:36 Date Asked 05/16/24 05/16/24 06:07 AD Date Reviewed COLST On File at [facility] COLST Date Scanned Code Status Resuscitation Status Full Code Insurance Coverage/Financial Issues Insurance: /BS [facility] Care Team Visit Care Team Role Provider Type Hermelindo Brown NP Primary Care Provider NURSE PRACTITIONER Patricia Yoon, HVAC R INSTRUCTOR Other Providers SPEECH LANGUAGE PATHOLOGIST Theresa Arteaga, HVAC R INSTRUCTOR Other Providers SPEECH LANGUAGE PATHOLOGIST Kanchan Moore Other Providers SPEECH LANGUAGE PATHOLOGIST Melissa Dougherty, HVAC R INSTRUCTOR Other Providers SPEECH LANGUAGE PATHOLOGIST Jenna Cox, HVAC R INSTRUCTOR Other Providers SPEECH LANGUAGE PATHOLOGIST Ramsey Sousa Other Providers OTHER Reny Avalos MD Emergency Provider [facility] STAFF PHYSICIAN Rock Marlow MD Admit Provider [facility] STAFF PHYSICIAN Attending Provider Discharge Potential Discharge Needs: Imaging/labs (Needs an ECHO with bubble study) Anticipated Barriers to Discharge: None Identified Patient/Family Education Needs: Review discharge instructions, discuss Ask Me Three Transportation: Private vehicle Plan: Anticipate Uri will be discharged home with no new servces. He will follow up with his community providers and plan of care and transport with family. CM will follow and continue to support the discharge planning process. PFSH All Active Problems (Updated 05/16/24 @ 22:52 by Abebe Fowler DO) Brain TIA (Acute) DVT prophylaxis (Acute) Transient ischemic attack (Acute) Rupture of right proximal biceps tendon (Acute ~02/25/24) Left rotator cuff tear (Acute ~03/02/24) Left hip pain (Acute) Venous stasis (Acute) Traumatic open wound of lower leg with delayed healing (Acute) Atrial fibrillation (Acute 03/29/16) cardioverson 18 Cardiomyopathy (Acute 09/03/13) non ischemic EF 60-65 2015 Colon polyp (Acute 05/26/15) serrated adenoma Depressive disorder (Acute 09/03/13) Essential hypertension (Acute) Hypercholesterolemia (Acute 03/09/08) Male erectile disorder (Acute 09/03/13) Morbid obesity due to excess calories (Acute 08/25/15) Sleep apnea (Acute 09/03/13) Stasis dermatitis (Acute 09/03/13) Type 2 diabetes mellitus without complication (Acute 03/22/16) Seizure disorder (Acute 09/03/13) History of Nisa-en-Y gastric bypass (Acute) Lipoma (Acute) Non-healing wound of right lower extremity (Acute) Medical History Hx of atrial fibrillation, no current medication pt. is currently on meds for this, see summary Cardiomyopathy Hypercholesteremia Stasis dermatitis Depression Essential hypertension KELLY (obstructive sleep apnea) Surgical History History of surgery on lower extremity R leg, tumor removal, pt. reports in 1970s Total replacement of hip RIGHT Colonoscopy - MAC (05/12/15) Dr. Jose Guadalupe Casillas Arthroplasty of knee X 2, hpt. reports these were scopes Family History Mother Personal history of malignant neoplasm BONE Father Essential hypertension Personal history of malignant neoplasm PROSTATE Heart disease Sister Essential hypertension Social History Smoking/Tobacco Use Status: Former Tobacco Use Quit Date: 09/24/81 Smoking risk assessment performed?: Yes Alcohol Intake: current Alcohol Intake frequency: a few times a week Alcohol type: wine Drug use: Never Substance use type: does not use Details: alcohol: t-5. one glass Housing: apartment What type of physical activity do you participate in: walking Duration: 15-30 minutes/day Frequency: 3-4 times per week Do you feel safe at home: Yes Do you feel safe in your relationship?: Yes SDOH(Care Management) Screening Will the Patient Participate in the Screening?: Unable to obtain Do you worry about having a steady place to live?: no In the past 12 months, have you had to go without electric, gas, oil or water in your home?: no Have you or anyone in your house had to go without enough food to eat?: no Has lack of transportation kept you from medical appointments or from doing things needed for daily living?: no Has anyone in your support network made you feel unsafe for any reason?: no
--- NOTE | 2024-05-17 09:50 | PT.INIE ---
Date of service: 05/17/24 Time of Service: 09:15 PT Notes Visit Reasons: Stroke Inpatient Physical Therapy Evaluation Date: May 17, 2024 Referring Doctor: Rock Marlow PT Orders: PT CONSULT: Fall Safety Assessment Precautions: Standard Patient Profile/Admitting Diagnosis: Uri is a 69 year old male scheduled for L RCR surgery yesterday morning presenting with stroke like symptoms- difficulty speaking, L sided hemiparesis. Surgery canceled and patient assessed for CVA versus TIA. PMHX: (Updated 05/16/24 @ 19:19 by Rock Marlow MD) DVT prophylaxis (Acute) Transient ischemic attack (Acute) Rupture of right proximal biceps tendon (Acute ~02/25/24) Left rotator cuff tear (Acute ~03/02/24) Left hip pain (Acute) Venous stasis (Acute) Traumatic open wound of lower leg with delayed healing (Acute) Atrial fibrillation (Acute 03/29/16) cardioverson 12/09 Cardiomyopathy (Acute 09/03/13) non ischemic EF 60-65 2016 Colon polyp (Acute 05/26/15) serrated adenoma Depressive disorder (Acute 09/03/13) Essential hypertension (Acute) Hypercholesterolemia (Acute 03/09/08) Male erectile disorder (Acute 09/03/13) Morbid obesity due to excess calories (Acute 08/25/15) Sleep apnea (Acute 09/03/13) Stasis dermatitis (Acute 09/03/13) Type 2 diabetes mellitus without complication (Acute 03/22/16) Seizure disorder (Acute 09/03/13) History of Nisa-en-Y gastric bypass (Acute) Lipoma (Acute) Non-healing wound of right lower extremity (Acute) Medical History Hx of atrial fibrillation, no current medication pt. is currently on meds for this, see summaryCardiomyopathy Hypercholesteremia Stasis dermatitis Depression Essential hypertension KELLY (obstructive sleep apnea) Surgical History History of surgery on lower extremity R leg, tumor removal, pt. reports in 1970sTotal replacement of hip RIGHTColonoscopy - MAC (05/12/15) Dr. Jose Guadalupe Bensonrthroplasty of knee X 2, hpt. reports these were scopes Social History/Home Situation: Uri lives in a private home with his . Has 2-3 steps to enter, once in home one level living. Prior to admission was independent at baseline. Current Functional Limitations: Limited strength and mobility L shoulder due to RTC tear, Pain L hip due to severe arthritis Equipment Owned/DME: walking sticks Subjective: Uri notes that he feels back to normal. No complaints of SOB. Has been getting up and moving about hospital room without limitations and no assistive device. Objective: General Observation: telemetry Mental Status: Alert and oriented x3 Pain: Left shoulder aching, pain with WBing L hip Vital Signs: Monitored via nursing ROM: Right Upper Extremity: Demonstrates WFL R UE ROM Left Upper Extremity: Demonstrates WFL L UE ROM with exception of limited ER and forward elevation L shoulder Right Lower Extremity: Demonstrates WFL R LE ROM Left Lower Extremity: Demonstrates WFL L LE ROM Strength: Right Upper Extremity: Demonstrates WFL R UE strength Left Upper Extremity: Demonstrates weakness L shoulder due to RTC tear, bicep 4/5, tricep 4/5, good functional grasp Right Lower Extremity: Demonstrates good functional strength R LE Left Lower Extremity: Demonstrates good functional strength L LE Sensation: Intact to light touch Bed Mobility/Transfers: Bed-Chair: independent Sit-Stand: independent Stand-sit: independent Gait: Mild Trendelenburg secondary to arthritic hip, steady kai without assistive device ambulating 200 feet supervision only. Able to ascend and descend 3 stairs with use of 1 railing as well as without railing without difficulty Balance: Static Sitting: Normal Dynamic Sitting: Normal Static Standing: Normal Dynamic Standing: Good 4 stage balance assessment: Feet together 10 seconds, Foot in instep of other foot 10 seconds, Tandem 10 seconds, Unilateral stance 4-5 seconds R/L Special Tests: Mobility Limitations Standardized Measure [facility] AM-PAC 6 clicks Basic Mobility Inpatient Short Form: Raw Score: 24 CMS Score: 0% Informed Consent/Education: Patient instructed in purpose of PT consult and plan of care. Assessment: Patient is a 69 year old male referred to physical therapy services with the diagnosis of TIA. Currently at time of PT consult this a.m. is back to baseline mobility and level of function. Does continue to have ongoing dysfunction of the left shoulder due to rotator cuff tear with impaired joint mobility and muscle performance. Also has ongoing hip dysfunction and weakness due to severe arthritis. Patient is assessed as a Low [id number] complexity based on the following: History: As above Examination: As above Presentation: Stable Decision Making: Low complexity Plan of Care/Treatment Plan: Patient does not require further PT for is back to previous level of function. Discharge from PT services at this time. Patient to be discharged once medically cleared DISCHARGE RECOMMENDATIONS: Home with no services TREATMENT CODE/TIME: 01977, 30 minutes, IE Pat Perkins, BOYD [facility] Please sign an return this page within 30 days if you agree with the above POC. Thank you! Physician Signature Date [facility] Disclaimer: This note was created using [employer] voice recognition software. It was reviewed for major content. However, there may be multiple small discrepancies and errors due to the voice recognition aspects of the software.
[2024-05-17 11:46] VITALS: BP 123/79; PULSE 77; RESP 16; TEMP 36.1; O2SAT 99
--- NOTE | 2024-05-17 12:25 | DSE_ITS ---
Date of service: 05/17/24 Time of Service: 12:25 DS: Diagnosis Discharge Diagnosis (1) Transient ischemic attack: Status: Acute (2) Atrial fibrillation: Status: Chronic (3) Cardiomyopathy: Status: Chronic (4) Essential hypertension: Status: Chronic (5) Hypercholesterolemia: Status: Chronic (6) Sleep apnea: Status: Chronic (7) Type 2 diabetes mellitus without complication: Status: Chronic (8) Left rotator cuff tear: Status: Acute Discharge Plan Disposition Patient Disposition: Home Condition: Improving Discharge Details Reason For Visit: TIA Admit Date/Time: 05/16/24 09:02 Admit Provider: Rock Marlow Attending Provider: Rock Marlow Primary Care Provider: Hermelindo Brown Hospital Course Hospital Course: right handed 69 yr old white male w/ hx of cardiomyopathy, essential HTN, DM type II controlled (last HbA1C 6.6% as of 04/25/24), HLD on atorvastatin, chronic atrial fibrillation anticoagulated on apixaban (but stopped 2 days prior to elective shoulder surgery), rate controlled on metoprolol, who was to have left shoulder reverse total shoulder arthoplasty w/ biceps tenodesis in the waiting room awaiting his surgery around 6 AM when he had sudden onset of blurred vision in which the clock had 2 faces and when his found him he was listing to his left side and having garbled speech and seemed to have left arm and left hand and left leg weakness. He was taken to emergency room immediately And he was triaged for an acute CVA. He underwent CT of his head including a CTA of the head and neck and subsequently underwent MRI and MRA of the brain. CT of the head and neck showed a normal [place] of the head CTA of the neck showed a plaque of the common carotid bulbs left greater than right without significant stenosis. MRA of the brain showed normal [place]. MRA of the neck showed focal area of mild narrowing of the common carotid bulbs on the left with no significant internal carotid stenosis. Vertebral arteries are normal in size. Brain MRI was unremarkable did not show any focus of restricted diffusion to suggest any acute infarct. There were no white matter signal changes. While the patient was in the emergency room being evaluated a teleneurology consult was obtained and during the teleneurology consult the patient's acute neurologic symptoms totally resolved. Patient was admitted to the hospital monitored overnight on telemetry he had stable chronic atrial fibrillation at a controlled rate. The tele-neurologist who evaluated the patient while he was in the emergency room recommended that the patient be placed on dual antiplatelet therapy with Plavix and aspirin for which he was given a loading dose of 324 mg of aspirin and 300 mg of Plavix. However the next day after reviewing his MRI report which showed no diffusion defect, I put the patient back on his apixaban but d/t the athersclerotic changes in his cervical vessels kept him on aspirin 81 mg daily. Lipid panel was obtained and his LDL was found to be 54 so no changes were made to his simvastain dose. His glycohemoglobin A1C had just been done on 04/25/24 and was 6.6% which is very acceptable so no new changes were made to his diabetes regimen. He did not get a bubble echo done prior to his discharge, however he had a preoperative echo done on 05/14/2024 which demonstrated midly dilated LV w/ moderate reduced systolic function w/ LVEF 40% w/ moderate global hypokinesis, normal size and function to his RV but w/ moderate left atrial enlargement and moderate mitral regurgitation d/t LV and LA dilatation. Aortic valve appeared to be bicuspid w/ no aortic stenosis or aortic insufficiency. P.T. and NEUROPHYSIOLOGY TECH consults obtained and he was cleared and no further rehabilitation services were recommended. Patient is to follow up locally w/ a neurologist, Dr. Kely Vail within the next month and he should see his PCP, Hermelindo Brwon in the next week Home Meds and New Rx's Prescriptions: New aspirin 81 mg capsule 81 mg PO DAILY Qty: 30 0RF Continued sildenafil [Viagra] 100 mg tablet 50 - 100 mg PO ONCE PRN (Reason: sexual activity) Qty: 30 4RF Patient Comments: pt. states not last night terazosin 1 mg capsule 1 mg PO HS Qty: 90 4RF furosemide 40 mg tablet 40 mg PO DAILY Qty: 90 4RF Rx Instructions: T Eliquis 5 mg tablet 5 mg PO BID Qty: 180 3RF sertraline 100 mg tablet 100 mg PO DAILY Qty: 90 3RF metformin 500 mg tablet 500 mg PO HS metoprolol succinate 100 mg tablet extended release 24 hr 100 mg PO HS simvastatin 40 mg tablet 40 mg PO HS lisinopril 30 mg tablet 60 mg PO HS Rx Instructions: 2 TABS DAILY Discharge Instructions Instructions: Transient ischemic attack Additional Instructions: You presented with strokelike symptoms including left arm and left leg weakness along with slurred speech and acute visual changes. Your MRI scan brain was negative for stroke and your symptoms resolve quickly. MRA of the brain and neck and CTA of the brain and neck were performed. He have some mild atherosclerotic changes in the common carotid bulb and the vessels in your neck. Your echocardiogram shows Moderately reduced left ventricular systolic function with an ejection fraction of 40% with global wall motion abnormality. This is consistent with a known cardiomyopathy. No clots were seen in the heart. However you are found to have moderate mitral regurgitation and a moderately enlarged left atrium. Because of your atrial fibrillation and cardiomyopathy you are at increased risk for strokes and she remain on your Eliquis. Because of the atherosclerotic plaques in your neck I am recommending that you start aspirin 81 mg daily until you can see a neurologist to discuss long-term antiplatelet and anticoagulant strategy. You should see a neurologist for follow-up and we have given you the name of Dr. Kely Vail who is local to [facility]. You should keep a follow-up appointment with your primary care provider next week. Although you had an echocardiogram performed prior to your surgery and echocardiogram with bubble study was not performed and an order has been sent to complete this next week. Your lipid levels are well-controlled with a total cholesterol of 126 and an LDL of 54 and triglycerides of 141 and HDL 44. Please continue your current dose of atorvastatin. Do not stop your apixaban. You should discuss with the neurologist any anticoagulation management strategies in preparation for future surgery. If you have any further strokelike symptoms such as blurred vision, double vision, slurred speech, difficulty talking, or focal weakness or numbness in your arms or legs please seek immediate attention at the nearest emergency department or call 911. Stand Alone Forms: Nursing Discharge Form Referrals: Hermelindo Brown NP [Primary Care Provider] - (Please call the office on Sunday to set up a hospital follow up within 10-14 days ) Kely Vail MD [ [facility] STAFF PHYSICIAN] - (A referral has been sent to the office) Activity:: Activity as Tolerated Equipment/Supplies:: No Equipment Needed Diet:: Carb Counting Discharge Orders Discharge Orders: Discharge Order (Routine); Ordered 05/17/24 Ordered By: Rock Marlow Other Ambulatory Orders: US echocardiogram w bubbles (Routine) Timeframe: 1 Week Location: None Selected Ordered By: Rock Marlow Discharge Data Discharge Date/Time-TO BE ENTERED AT DEPARTURE: 05/17/24 12:45 DS: Summary Time Spent with Patient providing and/or coordinating discharge services: Greater than 30 minutes Status at Discharge Functional status at discharge: independent ambulation Overall status at discharge: patient is back to baseline Mental Status: mental status grossly normal Speech and Movement: speech and movement normal Mood: congruent mood Affect: normal affect Quality:SDOH Health Related Social Needs: No Data to Display Exam Narrative Exam Narrative: Mr Carver is dressed sitting up in his room, joking w/ his family Speech is clear, no facial asymmetry Normal ROM and strength in both UE (within limits of his left shoulder cuff tear) and normal ROM and strength and sensation of both lower extremities Psych Mental Status: mental status grossly normal Speech and Movement: speech and movement normal Mood: congruent mood Affect: normal affect DS: Data Vitals/I&O Vitals and I&O: Vital Signs Temperature 36.1 C L 05/17/24 11:46 Temperature Source Skin 05/17/24 11:46 Pulse 77 05/17/24 11:46 Pulse Rhythm Regular 05/17/24 11:46 Pulse 70 05/16/24 10:40 Respiratory Rate 16 05/17/24 11:46 Respiratory Effort Normal 05/17/24 11:46 Respiratory Depth Normal 05/17/24 11:46 Respiratory Pattern Normal 05/17/24 11:46 Blood Pressure 123/79 05/17/24 11:46 Blood Pressure Mean 34 05/16/24 06:16 Blood Pressure Position Supine 05/16/24 06:23 Pulse Oximetry 99 05/17/24 11:46 Oxygen Delivery Method Room Air 05/17/24 11:46 Oxygen Flow Rate 0 05/17/24 11:46 Pain Level 0 05/17/24 11:46 Intake & Output 05/16/24 05/17/24 05/17/24 23:59 11:59 23:59 Intake Total 500 / 500 Balance 500 / 500 Weight 132 kg Intake: IV 500 / 500 Data Completed and Pending Labs on day of discharge: Labs from last 24 hours 05/17/24 06:40 Triglycerides 141 Total Cholesterol 126 LDL Cholesterol, Calc 54 HDL Cholesterol 44 PFSH All Active Problems (Updated 05/18/24 @ 22:45 by Rock Marlow MD) Transient ischemic attack (Acute) Rupture of right proximal biceps tendon (Acute ~02/25/24) Left rotator cuff tear (Acute ~03/02/24) Left hip pain (Acute) Venous stasis (Acute) Traumatic open wound of lower leg with delayed healing (Acute) Atrial fibrillation (Chronic 03/29/16) cardioverson 12/09 Cardiomyopathy (Chronic 09/03/13) non ischemic EF 60-65 2015 Colon polyp (Acute 05/26/15) serrated adenoma Depressive disorder (Acute 09/03/13) Essential hypertension (Chronic) Hypercholesterolemia (Chronic 03/09/08) Male erectile disorder (Acute 09/03/13) Morbid obesity due to excess calories (Acute 08/25/15) Sleep apnea (Chronic 09/03/13) Stasis dermatitis (Acute 09/03/13) Type 2 diabetes mellitus without complication (Chronic 03/22/16) Seizure disorder (Acute 09/03/13) History of Nisa-en-Y gastric bypass (Acute) Lipoma (Acute) Non-healing wound of right lower extremity (Acute) Medical History Hx of atrial fibrillation, no current medication pt. is currently on meds for this, see summary Cardiomyopathy Hypercholesteremia Stasis dermatitis Depression Essential hypertension KELLY (obstructive sleep apnea) Surgical History History of surgery on lower extremity R leg, tumor removal, pt. reports in 1970s Total replacement of hip RIGHT Colonoscopy - MAC (05/12/15) Dr. Jose Guadalupe Casillas Arthroplasty of knee X 2, hpt. reports these were scopes Family History Mother Personal history of malignant neoplasm BONE Father Essential hypertension Personal history of malignant neoplasm PROSTATE Heart disease Sister Essential hypertension Social History Smoking/Tobacco Use Status: Former Tobacco Use Quit Date: 09/24/81 Smoking risk assessment performed?: Yes Alcohol Intake: current Alcohol Intake frequency: a few times a week Alcohol type: wine Drug use: Never Substance use type: does not use Details: alcohol: t-5. one glass Housing: apartment What type of physical activity do you participate in: walking Duration: 15-30 minutes/day Frequency: 3-4 times per week Do you feel safe at home: Yes Do you feel safe in your relationship?: Yes Time Spent with Patient Time Spent with Patient: <45 minutes Time was spent: preparing to see the patient(eg.review tests), ordering medications,tests, procedures, referring, communicating with other health critical care unit nurse, indepentently interpreting results, counseling the patient and care coordination
--- NOTE | 2024-05-17 16:28 | PDOC.CMPRO ---
Date of service: 05/28/24 Time of Service: 16:28 Care Management Progress Note Progress Note Text Progress Note Text: Uri was sitting on the side of the bed fully dressed when CM met with him. He was open to discussion and pleasant in interaction. He informed CM that he has been discharged and will be leaving shortly. Several family members were in the room with him and will provide transportation. Uri was admitted with stroke like symptoms. He arrived at [facility] yesterday for an elective surgical procedure when he suddenly developed left sided weakness and blurred vision. He was taken to the ED where his symptoms resolved. Uri was admitted for additional testing including an MRI and MRA and cardiac monitoring. Uri did not experience any additional symptoms and was discharged home with family. Discharge Potential Discharge Needs: PCP F/U Appt and Other (neurology) Anticipated Barriers to Discharge: None Identified Patient/Family Education Needs: Review discharge instructions, discuss Ask Me Three Transportation: Private vehicle Plan: Uri will be discharged home with no new services. He will follow up with his community providers and plan of care and transport with family. SDOH(Care Management) Screening Will the Patient Participate in the Screening?: Unable to obtain Do you worry about having a steady place to live?: no In the past 12 months, have you had to go without electric, gas, oil or water in your home?: no Have you or anyone in your house had to go without enough food to eat?: no Has lack of transportation kept you from medical appointments or from doing things needed for daily living?: no Has anyone in your support network made you feel unsafe for any reason?: no
== END 2024-05-17 12:45 | disposition home or self-care (01) | DRG 69 ==
LOC: ER 08:27 → MS 13:18 → EDHOLD 05-22 11:29 → MS 05-22 11:29
PROVIDERS: Student in an Organized Health Care Education/Training Program; Admitting Provider Internal Medicine; Emergency Provider Emergency Medicine; PCP Nurse Practitioner Family; Visit Provider Internal Medicine
DX: G45.9 Transient cerebral ischemic attack, unspecified (principal); I42.9 Cardiomyopathy, unspecified; I48.21 Permanent atrial fibrillation; G81.94 Hemiplegia, unspecified affecting left nondominant side; Z68.41 Body mass index [BMI] 40.0-44.9, adult; E78.00 Pure hypercholesterolemia, unspecified; I10 Essential (primary) hypertension; G47.33 Obstructive sleep apnea (adult) (pediatric); E11.9 Type 2 diabetes mellitus without complications; M75.102 Unspecified rotator cuff tear or rupture of left shoulder, not specified as traumatic; Z79.01 Long term (current) use of anticoagulants; I87.8 Other specified disorders of veins; F32.A Depression, unspecified; E66.01 Morbid (severe) obesity due to excess calories; G40.909 Epilepsy, unspecified, not intractable, without status epilepticus; Z79.899 Other long term (current) drug therapy; Z98.84 Bariatric surgery status; R47.1 Dysarthria and anarthria; H53.459 Other localized visual field defect, unspecified eye; I34.0 Nonrheumatic mitral (valve) insufficiency
CPT/HCPCS: 00123; 36415; 70496; 70498; 70544; 70547; 80053; 80061; 92610; 93005; 96360; 96372; 97161; 99291; J1650; 70551; 84484; 85025; 85610; 85730; 93010; 93970; 99222; 99238; J1815; J3490